=== PATIENT | male | born 1960 | race Caucasian/White ===

== ENCOUNTER 2017-11-22 10:12 | Emergency (ER) | payer OTHER ==
[~2017-11-22] VITALS: Ht 182.9 cm; Wt 99.8 kg
[~2017-11-22 10:12] MED LIST: ALBU90OI INH; AMOX500 PO; ASPI325 PO; Aspir-Low81 MG PO; Celexa10 MG PO; Citalopram HBr10 MG PO; ERGO50000 PO; GLIP2.5ER PO; HYDACE10B PO; HYDACE5 PO; LISI20; LISI5 PO; PRED20 PO; SULTRIDS PO; Tambocor100 MG PO
[2017-11-22] MEDS ORDERED: NAPR550 PO (11:23)
== END 2017-11-22 11:26 | disposition home or self-care (01) ==
LOC: ER 10:12
DX: M79.671 Pain in right foot (principal); F17.210 Nicotine dependence, cigarettes, uncomplicated; Z79.899 Other long term (current) drug therapy; Z79.82 Long term (current) use of aspirin; Z79.84 Long term (current) use of oral hypoglycemic drugs
CPT/HCPCS: 73630; 99283

== ENCOUNTER 2019-08-24 11:32 | Inpatient (IN) | payer OTHER ==
[~2019-08-24] VITALS: Ht 185.4 cm; Wt 95.0 kg
[~2019-08-24 11:32] MED LIST changes: +NAPR550 PO
[2019-08-24 12:58] LABS: BASOPHILS ABSOLUTE AUTO 0.03 K/mm3 (0.00-0.23); BASOPHILS PERCENT AUTO 0 % (0-2); EOSINOPHILS ABSOLUTE AUTO 0.04 K/mm3 (0.00-0.68); EOSINOPHILS PERCENT AUTO 0 % (0-6); Hematocrit 41.2 % (37.0-53.0); Hemoglobin 13.6 g/dL (13.5-17.5); IMMATURE GRAN ABSOLUTE AUTO 0.02 K/mm3 (0.00-0.10); IMMATURE GRAN PERCENT AUTO 0 % (0-1); LYMPHOCYTES ABSOLUTE AUTO 2.01 K/mm3 (0.84-5.20); LYMPHOCYTES PERCENT AUTO 23 % (21-46); MONOCYTES ABSOLUTE AUTO 0.77 K/mm3 (0.16-1.47); MONOCYTES PERCENT AUTO 9 % (4-13); Mean Corpuscular HGB 30.8 pg (26.0-34.0); Mean Corpuscular Volume 93 fL (80-100); Mean Platelet Volume 11.6 fL (9.1-12.4); NEUTROPHILS ABSOLUTE AUTO 6.04 K/mm3 (1.96-9.15); NEUTROPHILS PERCENT AUTO 68 % (41-73); Platelet Count 215 K/mm3 (150-400); RDW Coefficient Variation 12.7 % (11.7-14.2); RDW Standard Deviation 43.7 fL (35.1-46.3); Red Blood Cell Count 4.42 M/mm3 (4.30-5.90); White Blood Cell Count 8.91 K/mm3 (4.00-11.30)
[2019-08-24 13:16] LABS: Alanine Aminotransfer (ALT/SGP 98 U/L (12-78); Albumin, Blood 3.4 g/dL (3.4-5.0); Albumin/Globulin Ratio 0.8 (0.8-1.8); Alk Phos 110 U/L (50-136); Anion Gap 9 mmol/L (6-16); Aspartate Aminotrans (AST/SGOT 52 U/L (12-37); Bilirubin, Total 0.6 mg/dL (0.1-1.0); Blood Urea Nitrogen 21 mg/dL (8-24); Bun/Creatinine Ratio 16.5 (12.0-20.0); CO2, Blood 20 mmol/L (21-32); Calcium, Blood 8.6 mg/dL (8.5-10.1); Chloride, Blood 107 mmol/L (98-108); Creatinine, Blood 1.27 mg/dL (0.60-1.20); Globulin, Blood 4.1 g/dL (2.2-4.0); Glomerular Filtration Rate >60 (60-); Glucose, Blood 338 mg/dL (70-99); Potassium, Blood 4.2 mmol/L (3.5-5.5); Sodium, Blood 136 mmol/L (136-145); Total Protein, Blood 7.5 g/dL (6.4-8.2); Troponin I 0.134 ng/mL (0.000-0.040)
[2019-08-24 13:30] LABS: International Normalized Ratio 1.07; Prothrombin Time Results 11.4 Sec (9.7-11.5)
[2019-08-24 15:38] LABS: Magnesium, Blood 1.8 mg/dL (1.6-2.4)
[2019-08-24 15:40] LABS: Thyroid Stimulating Hormone 0.991 uIU/mL (0.360-4.800)
--- NOTE | 2019-08-24 17:46 | NUR ---
1720 PT ADMITTED TO MEDICAL FLOOR VIA GURNEY, SELF TRANSFERED TO BED WITHOUT ISSUE. PT INSISTED THAT HE GO OUTSIDE TO SMOKE IMMEDIATELY, PT COUNSELED ON SMOKING SENSATION AND RISKS ASSOCIATED WITH SMOKING WITH CURRENT CONDITION, INCLUDING SUDDEN . PT ON RA, LUNGS CLEAR ALTHOGH TIGHT. PT REQUESTED W/C. ABLE TO ATTAIN SET OF VS. 1740 PT'S FRIEND WHEELED PT. 1750 PT RETURNED TO ROOM.
--- NOTE | 2019-08-24 19:27 | NUR ---
SHIFT SUMMARY. A&OX4, INDEPENDENT IN ROOM, PLEASANT AND COPERATIVE. PT DENIES PAIN, SOB, N/V. LUNGS CLEAR, ALTHOGH TIGHT, ON RA. PT REPORTS THAT HE FEELS THAT HE WILL NOT WANT TO SMOKE FURTHER. NO NEW CHANGES OR CONCERNS.
[2019-08-24 22:12] LABS: Adenovirus Not Detected (NOT DETECT); Bordetella pertussis Not Detected (NOT DETECT); Chlamydophila pneumoniae Not Detected (NOT DETECT); Coronavirus 229E Not Detected (NOT DETECT); Coronavirus HKU1 Not Detected (NOT DETECT); Coronavirus NL63 Not Detected (NOT DETECT); Coronavirus OC43 Not Detected (NOT DETECT); Human Metapneumovirus Not Detected (NOT DETECT); Human Rhinovirus/Enterovirus Not Detected (NOT DETECT); Influenza A/2009-H1 Not Detected (NOT DETECT); Influenza A/H1 Not Detected (NOT DETECT); Influenza A/H3 Not Detected (NOT DETECT); Influenza B Not Detected (NOT DETECT); Mycoplasma pneumoniae Not Detected (NOT DETECT); Parainfluenza Virus 1 Not Detected (NOT DETECT); Parainfluenza Virus 2 Not Detected (NOT DETECT); Parainfluenza Virus 3 Not Detected (NOT DETECT); Parainfluenza Virus 4 Not Detected (NOT DETECT); Respiratory Syncytial Virus Not Detected (NOT DETECT)
[2019-08-25 04:31] LABS: BASOPHILS ABSOLUTE AUTO 0.05 K/mm3 (0.00-0.23); BASOPHILS PERCENT AUTO 1 % (0-2); EOSINOPHILS ABSOLUTE AUTO 0.23 K/mm3 (0.00-0.68); EOSINOPHILS PERCENT AUTO 3 % (0-6); Hematocrit 39.4 % (37.0-53.0); Hemoglobin 12.8 g/dL (13.5-17.5); Mean Corpuscular HGB 30.3 pg (26.0-34.0); Mean Corpuscular HGB Conc 32.5 g/dL (31.5-36.5); Mean Corpuscular Volume 93 fL (80-100); Mean Platelet Volume 11.5 fL (9.1-12.4); Platelet Count 190 K/mm3 (150-400); RDW Standard Deviation 44.5 fL (35.1-46.3); Red Blood Cell Count 4.22 M/mm3 (4.30-5.90); White Blood Cell Count 8.65 K/mm3 (4.00-11.30)
[2019-08-25 04:39] LABS: IMMATURE GRAN ABSOLUTE AUTO 0.01 K/mm3 (0.00-0.10); IMMATURE GRAN PERCENT AUTO 0 % (0-1); LYMPHOCYTES ABSOLUTE AUTO 4.54 K/mm3 (0.84-5.20); LYMPHOCYTES PERCENT AUTO 53 % (21-46); MONOCYTES ABSOLUTE AUTO 0.77 K/mm3 (0.16-1.47); MONOCYTES PERCENT AUTO 9 % (4-13); NEUTROPHILS ABSOLUTE AUTO 3.05 K/mm3 (1.96-9.15); NEUTROPHILS PERCENT AUTO 35 % (41-73)
[2019-08-25 05:01] LABS: Bun/Creatinine Ratio 16.7 (12.0-20.0); Calcium, Blood 8.5 mg/dL (8.5-10.1); Creatinine, Blood 1.44 mg/dL (0.60-1.20); Potassium, Blood 3.9 mmol/L (3.5-5.5)
--- NOTE | 2019-08-25 06:22 | NUR ---
SHIFT SUMMARY AOX4. TELE RUNNING AFIB c HR 114 THIS AM. REST VSS. DENIES DYSPNEA, N/V OR CHEST PAIN. STATES WHEN HE LAYS FLAT HE GETS A "FLUTTER" FEELING IN CHEST, THEREFORE SLEEPING W/HOB ELEVATED HELPS. RESPIRATORY PANEL NEGATIVE. SWABBED NARES & THROAT FOR MRSA R/O. LUNGS SOUND TIGHT & DIM T/O. IND IN ROOM. CALL LIGHT IN REACH.
--- NOTE | 2019-08-25 19:21 | NUR ---
SHIFT SUMMARY PATIENT DENIES PAIN, NAUSEA, AND SHORTNESS OF BREATH. PATIENT UP INDEPENDENT IN ROOM. PATIENT HAD CARDIAC CONSULT AND ECHO TODAY. NEW ORDERS FOR HEPARIN DRIP THIS AFTERNOON. HEPARIN RUNNING AT 13 U/KG. DR. STARR SAW PATIENT THIS EVENING, PATIENT HAVING POSSIBLE ANGIO TOMORROW. PATIENT STRICT I&O'S. CALL LIGHT IN REACH.
[2019-08-26 00:43] LABS: Bun/Creatinine Ratio 21.2 (12.0-20.0); Calcium, Blood 8.9 mg/dL (8.5-10.1); Creatinine, Blood 1.32 mg/dL (0.60-1.20); Magnesium, Blood 1.8 mg/dL (1.6-2.4); Phosphorus, Blood 4.4 mg/dL (2.5-4.9); Potassium, Blood 3.8 mmol/L (3.5-5.5)
--- NOTE | 2019-08-26 05:26 | NUR ---
SHIFT SUMMARY NO ACUTE CHANGES THIS SHIFT. PT REQUESTED SLEEPING PILL THIS EVENING AND SLEPT THROUGH MUCH OF THE NIGHT FOLLOWING. VITAL SIGNS STABLE. TELEMETRY READING AFIB 110'S TONIGHT. PT DENIES ANY CHEST PAIN OR SOB. HEPARIN DRIP INFUSING THROUGHOUT THE NIGHT, RATE INCREASED TO 15 UNITS/KG/HR. PT NPO EXCEPT ICE CHIPS SINCE 0000 FOR PROCEDURE TODAY. PT RESTING IN BED AT THIS TIME. WILL CONTINUE TO MONITOR.
--- NOTE | 2019-08-26 11:28 | NUR ---
PATIENT TRANSFER PATIENT TRANSFERD TO [facility] FOR ANGIO. PATIENT TO GO TO PCU AFTER PROCEDURE. REPORT GIVEN TO RECEIVING PCU NURSE.
--- NOTE | 2019-08-26 19:40 | NUR ---
RELINQUISHED PATIENT CARE.
--- NOTE | 2019-08-26 19:41 | NUR ---
PATIENT ARRIVED FROM [facility] THIS AFTERNOON. TR BAND STARTED AT 15 CC, REMOVED AT 1815. R. WRIST PUNCTURE SITE NON-TENDER, NO DISCHARGE NOTED. PATIENT EXPRESSED FEELING ANXIOUS THIS EVENING, TOOK A WALK IN THE HALLWAY AND ENDORSED RELIEF OF ANXIETY. PATIENT'S HEPARIN DRIP WAS STOPPED AT 1800 WITH ADMINISTRATION OF XARELTO PER ORDERS. AMIODORONE DRIP RATE ADJUSTED AT 1845 AND TITRATED DOWN PER ORDERS.
[2019-08-27 04:06] LABS: Bun/Creatinine Ratio 20.9 (12.0-20.0); Creatinine, Blood 1.48 mg/dL (0.60-1.20); Potassium, Blood 3.7 mmol/L (3.5-5.5)
--- NOTE | 2019-08-27 06:50 | NUR ---
SHIFT SUMMARY PATIENT ANXIOUS BUT COOPERATIVE THROUGHOUT THE NIGHT. PATIENT VERY FIDGTY AND UNCOMFORTABLE BUT PATIENT COULD NOT STATE EXACTLY WHY HE WAS UNCOMFORTABLE. PATIENT CONTINUES TO BE SHORT OF BREATH WHEN LAYING DOWN. PATIENT EVEN STATED THAT HE FELT NAUSOUS WHEN LAYING DOWN AT ONE TIME, MEDICATED PER EMAR. PATIENT INDPENDENT IN THE ROOM AND WENT ON A WALK LAST NIGHT TO TRY TO HELP HIM SLEEP. PATIENT APPEARED TO NAP ON AND OFF THROUGHOUT THE NIGHT. PATIENT USED 2L O2 PRN FOR COMFORT. PATIENT CURRENTLY RESTING IN BED. AMIODERONE GTT RUNNING PER ORDERS. WILL CONTINUE TO MONITOR PATIENT AND GIVE BEDSIDE REPORT TO ONCOMING RN.
--- NOTE | 2019-08-27 07:20 | NUR ---
ASSUMED PATIENT CARE. SLEEPING COMFORTABLY IN BED, NO SIGNS OF ACUTE DISTRESS, WCTM.
--- NOTE | 2019-08-27 18:29 | NUR ---
NO ACUTE EVENTS THIS SHIFT. PATIENT STARTED ON PO AMIODORONE THIS MORNING. HAS REMAINED IN A FIB THIS SHIFT IN THE 90S-110S. PATIENT ENDORSED FEELING ANXIOUS, JITTERY, AND LIGHT SENSITIVE. DR. CLINE WAS NOTIFIED, GAVE ORDERS FOR PO ATIVAN. PATIENT ENDORSED THAT THE ATIVAN HELPED.
--- NOTE | 2019-08-27 21:57 | NUR ---
UPDATE DR ELLIS NOTIFIED OF PATIENT'S LOW BLOOD PRESSURE. DR ELLIS STATED THAT IT WAS FINE TO GO AHEAD AND GIVE PATIENT'S 2100 DOSE OF AMIODARONE.
[2019-08-28 05:51] LABS: Bun/Creatinine Ratio 16.1 (12.0-20.0); Calcium, Blood 8.8 mg/dL (8.5-10.1); Creatinine, Blood 2.3 mg/dL (0.60-1.20); Magnesium, Blood 2.1 mg/dL (1.6-2.4); Potassium, Blood 4.1 mmol/L (3.5-5.5)
--- NOTE | 2019-08-28 06:39 | NUR ---
SHIFT SUMMARY PATIENT ANXIOUS AT TIMES THROUGHOUT THE NIGHT, PATIENT MEDICATED FOR ANXIETY PER EMAR AND ABLE TO DUE TO LOW BLOOD PRESSURE. PATIENT AWAKE AND UP WALKING FREQUENTLY AT THE BEGINNING OF THE NIGHT BUT THEN WAS ABLE TO SETTLE DOWN AND APPEARED TO SLEEP WELL THROUGHOUT THE REST OF THE NIGHT. PATIENT REQUESTING NOT TO HAVE BEDSIDE REPORT THIS MORNING. WILL CONTINUE TO MONITOR PATIENT AND REPORT TO ONCOMING RN.
--- NOTE | 2019-08-28 18:28 | NUR ---
SHIFT SUMMARY: PT SELPT MOST OF THIS SHIFT. WENT FOR A WALK X 1, SHOWERED. USING BR INDEPENDENTLY. ADEQUATE PO INTAKE. C/O HEADACHE, MEDICATED WITH TYLENOL WITH GOOD EFFECT. DENIED CHEST DISCOMFORT, SOB, HALL.
--- NOTE | 2019-08-28 20:05 | NUR ---
INITIAL ASSESSMENT PATIENT SITTING ON SIDE OF BED UPON ENTERING ROOM. PATIENT ALERT AND ORIENTED X 4, AFEBRILE. PATIENT ANXIOUS AND IRRITABLE. PATIENT GIVEN PRN ATIVAN UPON REQUEST. PATIENT INDEPENDENT IN ROOM. PATIENT GIVEN PRN TYLENOL FOR COMPLAINT OF HEADACHE. PATIENT SATTING 90% AND GREATER ON RA. LUNGS CLEAR THROUGHOUT. PATIENT STATES HE HAS OCCASIONAL DRY COUGH. PATIENT IN A.FIB, HR 106. BP STABLE. PULSES STRONG. GI WNL PER PATIENT. WNL. R RADIAL SOIL CONSERVATIONIST ACCESS SITE NOTED. ARMBOARD AND TEGADERM IN PLACE. NO BLEEDING, BRUISING, OR HEMATOMA NOTED. IV FLUSHED AND SALINE LOCKED. BED LOW, CALL LIGHT IN REACH. WILL CONTINUE TO MONITOR PATIENT FREQUENTLY THROUGHOUT SHIFT.
--- NOTE | 2019-08-28 22:40 | NUR ---
PATIENT CAME OUT OF ROOM TO NURSES DESK, SET DOWN TELE MONITOR THAT HE TOOK OFF OF HIMSELF, AND STATED TO NURSE TO "TAKE IV OUT BECAUSE HE IS LEAVING". NURSE SPOKE WITH PATIENT AND PATIENT CONTINUES TO BE IRRITABLE AND ANXIOUS. PATIENT STATES HE IS UPSET BECAUSE NURSE GAVE HIM PRN ATIVAN 10 MINUTES AFTER ASKING AND THAT IT DID NOT WORK BECAUSE IT "WAS GIVEN TOO LATE". INFORMED PATIENT THAT HE CAN HAVE PRN ATIVAN AGAIN AT MIDNIGHT AND THAT HE ALSO HAS PRN AMBIEN AVAILABLE TO HELP WITH SLEEP. PATIENT STATED THAT HE "DIDN'T WANT ANY OF THAT CRAP" AND THAT HE JUST WANTED TO GO HOME. PATIENT STATED THAT HE CALLED HIS GF HANS AND SHE WAS COMING FROM [place] TO COME AND GET HIM. WILL HAVE PATIENT SIGN AMA FORM. CHARGE NURSE, HUNTER, AT DESK AND WITNESSED CONVERSATION.
--- NOTE | 2019-08-28 22:56 | NUR ---
2243: PATIENT SIGNED AMA FORM AFTER LISTENING TO RISKS AND BENEFITS. PATIENT STATED HE UNDERSTANDS RISKS OF LEAVING AMA. PATIENT STATES THAT GF WILL BE HERE IN ABOUT AN HOUR TO GET HIM. 1051: PATIENT WALKS OUT OF ROOM AND INFORMS NURSE THAT HE IS LEAVING AND THAT GF WILL BE HERE TO CLEAR THE STUFF OUT OF HIS ROOM. NURSE ASKS IF HE WILL BE BACK WHEN GF GETS HERE AND HE STATES "I DON'T KNOW". CHARGE NURSE, HUNTER, INFORMED.
--- NOTE | 2019-08-28 23:20 | NUR ---
PATIENT BACK TO ROOM TO WAIT FOR GF.
--- NOTE | 2019-08-29 00:03 | NUR ---
PATIENT CONTINUES TO WAIT FOR GF TO PICK HIM UP. PATIENT STATES SHE IS STILL ON HER WAY. VSS.
--- NOTE | 2019-08-29 01:50 | NUR ---
PATIENT'S GF SHOWED UP TO PICK HIM UP AT 0135. PATIENT SOB FROM BEING OUTSIDE SMOKING AND WAITING FOR GF. GF STATES THAT PATIENT IS STAYING. PATIENT AGREES TO STAY AFTER SPEAKING WITH GF. NURSE SPEAKS TO CHARGE NURSE, NURSE HYDRAULIC ENGINEER AND DR. LAND ABOUT PATIENT SIGNING AMA FORMS HOURS AGO. IT IS STATED BY DR. LAND TO DISREGARD AMA FORM AND TO HAVE PATIENT STAY. CHARGE NURSE INFORMED. PATIENT AND GF ASK IF PATIENT CAN HAVE ATIVAN AT THIS TIME. NURSE INFORMS THEM THAT HE CAN. GF JOKES THAT HE NEEDS A BEER WITH THE ATIVAN TO HELP. NURSE ASKS IF PATIENT DRINKS DAILY. PATIENT DENIES AND STATES HE DRINKS OCCASIONALLY. PATIENT'S GF STATES HE DRINKS 2 BEERS EVERY DAY. CIWA SCORE OF 10 OBTAINED. PATIENT GIVEN PRN ATIVAN. IF DOES NOT HELP THEN WILL CALL DR. LAND AGAIN TO INFORM.
--- NOTE | 2019-08-29 02:38 | NUR ---
DR. LAND CALLED AND INFORMED THAT PATIENT'S GF STATED PATIENT DRINKS 2 BEERS PER DAY. INFORMED THAT CIWA SCORE REMAINS 10 EVEN AFTER GIVING PRN 0.5 MG ATIVAN. ORDERS RECEIVED.
[2019-08-29 03:34] LABS: BASOPHILS ABSOLUTE AUTO 0.09 K/mm3 (0.00-0.23); BASOPHILS PERCENT AUTO 1 % (0-2); EOSINOPHILS ABSOLUTE AUTO 0.09 K/mm3 (0.00-0.68); EOSINOPHILS PERCENT AUTO 1 % (0-6); Hematocrit 45.9 % (37.0-53.0); Hemoglobin 14.9 g/dL (13.5-17.5); IMMATURE GRAN ABSOLUTE AUTO 0.08 K/mm3 (0.00-0.10); IMMATURE GRAN PERCENT AUTO 1 % (0-1); LYMPHOCYTES ABSOLUTE AUTO 5.67 K/mm3 (0.84-5.20); LYMPHOCYTES PERCENT AUTO 36 % (21-46); MONOCYTES ABSOLUTE AUTO 1.44 K/mm3 (0.16-1.47); MONOCYTES PERCENT AUTO 9 % (4-13); Mean Corpuscular HGB 30.5 pg (26.0-34.0); Mean Corpuscular HGB Conc 32.5 g/dL (31.5-36.5); Mean Corpuscular Volume 94 fL (80-100); Mean Platelet Volume 11.8 fL (9.1-12.4); NEUTROPHILS ABSOLUTE AUTO 8.43 K/mm3 (1.96-9.15); NEUTROPHILS PERCENT AUTO 53 % (41-73); NRBC ABSOLUTE 0.03 K/mm3 (0.00-0.02); NRBC Auto 0.2 /100 WBC (0.0-0.2); Platelet Count 246 K/mm3 (150-400); RDW Coefficient Variation 12.7 % (11.7-14.2); RDW Standard Deviation 43.7 fL (35.1-46.3); Red Blood Cell Count 4.88 M/mm3 (4.30-5.90)
[2019-08-29 04:00] LABS: Bun/Creatinine Ratio 15.2 (12.0-20.0); Calcium, Blood 8.9 mg/dL (8.5-10.1); Creatinine, Blood 3.15 mg/dL (0.60-1.20); Magnesium, Blood 2.1 mg/dL (1.6-2.4); Potassium, Blood 4.7 mmol/L (3.5-5.5)
--- NOTE | 2019-08-29 04:01 | NUR ---
CIWA SCORE OF 3. PATIENT MUCH LESS AGITATED AND IRRITATED SINCE GETTING LIBRIUM AND ATIVAN. AFEBRILE. HR IN THE 70S. BP STABLE. PATIENT REMAINS IN A.FIB. PATIENT COMPLAINING ABOUT CONSTIPATION. ABDOMEN FIRM. PATIENT DRANK PRUNE JUICE EARLIER IN SHIFT. PATIENT'S GF REMAINS AT BEDSIDE. PATIENT HAS NO COMPLAINTS OF PAIN AT THIS TIME. NO OTHER ACUTE CHANGES TO NOTE ON AT THIS TIME. WILL CONTINUE TO MONITOR.
--- NOTE | 2019-08-29 06:23 | NUR ---
SHIFT SUMMARY PATIENT REMAINED ALERT AND ORIENTED X 4, AFEBRILE. PATIENT VERY AGITATED AND IRRITATED UP UNTIL GF ARRIVED HERE TO PICK HIM UP HE SIGNED AMA FORMS. PATIENT STAYED AFTER SPEAKING WITH CHARGE NURSE, NURSE GEOGRAPHIC INFORMATION SYSTEMS MANAGER AND DOCTOR. PATIENT'S GF STATES PATIENT DRINKS 2 BEERS PER DAY. CIWA SCORE OF 10 INITIALLY. PATIENT STARTED ON LIBRIUM AND PRN ATIVAN. PATIENT MUCH MORE PLEASANT AFTER. LAST CIWA SCORE 3. PATIENT GIVEN PRN TYLENOL OT DURING SHIFT FOR COMPLAINTS OF HEADACHE. PATIENT REMAINED INDEPENDENT IN ROOM. PATIENT REMAINED SATTING 90% AND GREATER ON RA. PATIENT HAD DRY COUGH. PATIENT SOB WITH EXERTION WHEN WALKING IN CHAVES WHILE WAITING FOR GF. PATIENT IN A.FIB, HR 70S TO 106. BP STABLE. PATIENT ON PO AMIODARONE. PATIENT STATES HE IS CONSTIPATED, LAST BM 4 DAYS AGO. PATIENT RECEIVING SCHEDULED COLACE AND SENOKOT. WNL. R RADIAL PUBLIC RELATIONS ACCOUNT EXECUTIVE ACCESS SITE REMAINS WNL, WITH NO BLEEDING, BRUISING, OR HEMATOMA NOTED. BUN, CREATININE AND WBCS INCREASING. GFR DECREASING. PATIENT SLEEPING FOR THE FIRST TIME THIS SHIFT WITH NO COMPLAINTS. GF AT BEDSIDE. BED LOW, CALL LIGHT IN REACH. REPORT WILL BE GIVEN TO [facility] DAY SHIFT NURSE SHORTLY.
--- NOTE | 2019-08-29 07:26 | NUR ---
ASSUMED CARE: PT RESTING QUIETLY AT THIS TIME. S.O. IN ROOM WITH PT. NO ACUTE NEEDS OR CONCERNS AT PRESENT.
--- NOTE | 2019-08-29 11:48 | NUR ---
DR DONALDSON NOTIFIED OF PT'S COMPLAINTS OF CONSTIPATION. PT REQUESTING ENEMA WHICH DR DONALDSON AGREED TO. STATES HE WILL BE BACK TO SEE PT LATER TODAY. PT WAS IN RESTROOM WHEN ENTERED TO UPDATE. PT AWARE TO CALL STAFF WHEN READY FOR ENEMA
--- NOTE | 2019-08-29 12:09 | NUR ---
ENEMA ADMINISTERED. PT IN RESTROOM AT THIS TIME.
--- NOTE | 2019-08-29 17:59 | NUR ---
SHIFT SUMMARY: PT SITTING UPRIGHT AT SIDE OF BED. ANXIOUS AT THIS TIME. CIWA 10. MEDICATED WITH SCHEDULED LIBRIUM AND PRN ATIVAN. S.O. AT BEDSIDE. SHE HAS BEEN TAKING HIM FOR WALKS IN THE WHEEL CHAIR TO HELP THE ANXIETY. DR ZACARIAS CONSULTED AND CAME TO SEE PT. SEE NEW ORDERS. GIVING PT SPACE TO ASSIST WITH ANXIETY AT THIS TIME.
[2019-08-29 19:11] LABS: Appearance, Urine Clear (Clear); Blood, Urine Neg (Neg); Color, Urine Amber (P-Yellow); Glucose Qualitative, Urine Neg (Neg); Ketones, Urine 1+ (Neg); Leukocyte Esterase, Urine Neg (Neg); Nitrite, Urine Neg (Neg); Protein, Urine 2+ (Neg); Specific Gravity, Urine 1.025 (1.003-1.022); Urobilinogen, Urine 1+ (Normal)
[2019-08-29 19:17] LABS: Bilirubin, Urine 1+ (Neg)
[2019-08-29 19:20] LABS: Amorphous Light (0-Heavy); Bacteria Mod /hpf; Mucus Mod (0-Heavy); Red Blood Cells, Urine 0-2 /hpf (0-2); Squamous Epithelial Cells Few /hpf (Few)
--- NOTE | 2019-08-29 21:05 | NUR ---
GAVE REPORT TO ETHEL LESTER WHO WILL ASSUME CARE
--- NOTE | 2019-08-29 23:26 | NUR ---
APPROX 2320 PATIENT WALKED OUT OF ROOM AND ASKED 'DOES ANYONE HAVE A SHOT OF HEROINE?'. PATIENT TOLD NO BY STAFF AND PATIENT STATED HE WAS GOING TO GO ON A WALK. PATIENT EDUCATED ON AND AWARE OF GOING OFF UNIT FOR ANY REASON WHILE HERE FOR AFIB WITH RVR. PATIENT STATES HE IS AWARE OF WHAT HIS DIAGNOSIS IS AND HE IS AWARE THAT HIS TELEMTRY CANNOT GO OFF UNIT AND WILL NOT TRANSMITT OFF UNIT. PATIENT IS AWARE OF THE RISKS AND WILL GO WALKING ANYWAY.
--- NOTE | 2019-08-30 03:59 | NUR ---
APPROX 2350 PATIENT BROUGHT BACK TO ROOM BY ER STAFF VIA WHEELCHAIR STATING PATIENT RAN OUT OF ENERGY AND NEEDED ASSISTANCE BACK TO ROOM. PATIENT REQUESTED SLEEPING MEDICATION AND WENT TO BED. SECURITY ARRIVED AND LET [facility] KNOW THAT THE PATIENT WAS SMOKING IN THE LOBBY OF THE ER. BED ALARM TURNED ON
--- NOTE | 2019-08-30 04:02 | NUR ---
SHIFT SUMMARY: PATIENT BED ALARM ON HE IS GETTING INCREASINGLY UNSTABLE ON HIS FEET (AFTER AMBIEN). ALL OTHER VSS, CALL LIGHT WITHIN REACH
[2019-08-30 06:04] LABS: Albumin, Blood 2.9 g/dL (3.4-5.0); Anion Gap 11 mmol/L (6-16); Blood Urea Nitrogen 50 mg/dL (8-24); Bun/Creatinine Ratio 20.3 (12.0-20.0); CO2, Blood 22 mmol/L (21-32); CPK Creatine Kinase 40 U/L (39-308); Calcium, Blood 8.7 mg/dL (8.5-10.1); Chloride, Blood 104 mmol/L (98-108); Creatinine, Blood 2.46 mg/dL (0.60-1.20); Glomerular Filtration Rate 29 (60-); Glucose, Blood 121 mg/dL (70-99); Phosphorus, Blood 4.3 mg/dL (2.5-4.9); Potassium, Blood 3.8 mmol/L (3.5-5.5); Sodium, Blood 137 mmol/L (136-145)
--- NOTE | 2019-08-30 07:20 | NUR ---
ASSUMED CARE: PT RESTING QUIETLY AT THIS TIME. NO ACUTE NEEDS OR CONCERNS NOTED.
--- NOTE | 2019-08-30 17:54 | NUR ---
SHIFT SUMMARY: PT HAS BEEN RESTING MOST OF THIS SHIFT. COVERED BLOOD SUGAR ONCE THIS SHIFT. AMBULATED IN CHAVES ONCE THIS SHIFT. HAS DENIED NEEDS OR CONCERNS A MAJORITY OF THE SHIFT.
[2019-08-31 05:13] LABS: BASOPHILS ABSOLUTE AUTO 0.07 K/mm3 (0.00-0.23); BASOPHILS PERCENT AUTO 1 % (0-2); EOSINOPHILS ABSOLUTE AUTO 0.11 K/mm3 (0.00-0.68); EOSINOPHILS PERCENT AUTO 1 % (0-6); Hematocrit 39.3 % (37.0-53.0); Hemoglobin 12.9 g/dL (13.5-17.5); IMMATURE GRAN ABSOLUTE AUTO 0.04 K/mm3 (0.00-0.10); IMMATURE GRAN PERCENT AUTO 0 % (0-1); LYMPHOCYTES ABSOLUTE AUTO 4.32 K/mm3 (0.84-5.20); LYMPHOCYTES PERCENT AUTO 40 % (21-46); MONOCYTES ABSOLUTE AUTO 1.09 K/mm3 (0.16-1.47); MONOCYTES PERCENT AUTO 10 % (4-13); Mean Corpuscular HGB 31.2 pg (26.0-34.0); Mean Corpuscular HGB Conc 32.8 g/dL (31.5-36.5); Mean Corpuscular Volume 95 fL (80-100); Mean Platelet Volume 12.1 fL (9.1-12.4); NEUTROPHILS ABSOLUTE AUTO 5.18 K/mm3 (1.96-9.15); NEUTROPHILS PERCENT AUTO 48 % (41-73); Platelet Count 198 K/mm3 (150-400); RDW Coefficient Variation 13.1 % (11.7-14.2); RDW Standard Deviation 45.2 fL (35.1-46.3); Red Blood Cell Count 4.14 M/mm3 (4.30-5.90); White Blood Cell Count 10.81 K/mm3 (4.00-11.30)
[2019-08-31 06:23] LABS: Bun/Creatinine Ratio 22.2 (12.0-20.0); Calcium, Blood 8.3 mg/dL (8.5-10.1); Creatinine, Blood 1.76 mg/dL (0.60-1.20); Potassium, Blood 3.9 mmol/L (3.5-5.5)
--- NOTE | 2019-08-31 06:29 | NUR ---
SHIFT SUMMARY NO ACUTE CHANGES NOTED THROUGH THE NIGHT. PT REMAINS A&O X4, VSS, CIWA >3 NOTED. PT'S STAYED THE NIGHT IN THR ROOM. HE DID "GO FOR A WALK" IN THE HALLS X1 AND ENDED UP GOING OUTSIDE TO SMOKE, HE BECAME SOB & FATIGUED ON HIS WAY BACK TO THE ROOM AND HAD TO TAKE FREQUENT BREAKS, PT WAS ESCORTED BACK TO HIS ROOM, PT EDUCATION WAS PROVIDED, VS REMAINED WNL. RIGHT RADIAL SITE C/D/I, NO S/S HEMATOMA OR BRUISING. CALL LIGHT IN REACH
--- NOTE | 2019-08-31 07:20 | NUR ---
ASSUMED CARE: PT RESTING QUIETLY. S.O. AT BEDSIDE. NO ACUTE NEEDS OR CONCERNS AT THIS TIME.
[2019-08-31 10:33] LABS: Antinuclear Antibody Screen Positive (Negative)
[2019-08-31] MEDS ORDERED: Amiodarone HCl200 MG PO (11:35)
[2019-08-31] MEDS ORDERED: BASAGLAR K100 UNIT/1 SC (11:39)
[2019-08-31] MEDS ORDERED: ATOR20 PO (11:39)
[2019-08-31] MEDS ORDERED: HUMALOG KW200 UNIT/1 (11:40)
[2019-08-31] MEDS ORDERED: Isosorbide Mono30 MG PO (11:41)
[2019-08-31] MEDS ORDERED: Nicoderm Cq1 EAC1 TOP (11:42)
[2019-08-31] MEDS ORDERED: XARELTO15 MG PO (11:42)
[2019-08-31] MEDS ORDERED: METO50ER PO (11:42)
--- NOTE | 2019-08-31 15:48 | NUR ---
DISCHARGE INSTRUCTIONS GIVEN TO PT AND GIRLFRIEND ABOUT FOLLOW UP APPOINTMENTS AND MEDICATIONS. REVIEWED DIABETIC TEACHINGS AND RISKS WITH PT AND INSULIN USE. INSTRUCTED TO GET GLUCOMETER FROM [facility] AND MEDICATIONS FROM PHARMACY. DENIED QUESTIONS. AMBULATORY UPON DISCHARGE
[2019-09-01 13:07] LABS: ANA DIRECT Negative (Negative); ANTIMYELOPEROXIDASE (MPO) ABS <9.0 U/mL (0.0-9.0); ANTIPROTEINASE 3 (PR-3) ABS <3.5 U/mL (0.0-3.5); ATYPICAL PANCA <1:20 titer (Neg:<1:20); CYTOPLASMIC (C-ANCA) <1:20 titer (Neg:<1:20); PERINUCLEAR (P-ANCA) <1:20 titer (Neg:<1:20)
[2019-09-02 05:08] LABS: COMPLEMENT C3, SERUM 81 mg/dL (82-167); COMPLEMENT C4, SERUM 13 mg/dL (14-44)
[2019-09-02 13:19] LABS: ANA Pattern Homogenous
== END 2019-08-31 16:37 | disposition home or self-care (01) | DRG 280 ==
LOC: ER 11:32 → MEDS 17:09 → PCU 17:09 → MEDS 17:19 → PCU 08-26 11:42
PROVIDERS: Emergency Medicine; Hospitalist; Internal Medicine; Physician Assistant; ADMIT Internal Medicine
PROC: 4A023N7 Measurement of Cardiac Sampling and Pressure, Left Heart, Percutaneous Approach (ICD-10-PCS; principal; 2019-08-26)
PROC: B2111ZZ Fluoroscopy of Multiple Coronary Arteries using Low Osmolar Contrast (ICD-10-PCS; 2019-08-26)
PROC: 5A2204Z Restoration of Cardiac Rhythm, Single (ICD-10-PCS; 2019-08-26)
DX: I48.20 Chronic atrial fibrillation, unspecified (principal); I21.A1 Myocardial infarction type 2; I50.23 Acute on chronic systolic (congestive) heart failure; J18.9 Pneumonia, unspecified organism; N17.9 Acute kidney failure, unspecified; I13.0 Hypertensive heart and chronic kidney disease with heart failure and stage 1 through stage 4 chronic kidney disease, or unspecified chronic kidney disease; I42.8 Other cardiomyopathies; F17.210 Nicotine dependence, cigarettes, uncomplicated; E11.22 Type 2 diabetes mellitus with diabetic chronic kidney disease; N18.2 Chronic kidney disease, stage 2 (mild); Z86.73 Personal history of transient ischemic attack (TIA), and cerebral infarction without residual deficits; G47.33 Obstructive sleep apnea (adult) (pediatric)
CPT/HCPCS: 0099U; 36415; 71045; 76770; 80048; 80053; 80069; 81001; 82550; 82947; 83036; 83520; 83735; 83880; 84100; 84145; 84443; 84484; 85025; 85347; 85610; 85730; 86038; 86039; 86160; 86256; 87081; 92960; 93005; 93010; 93306; 93312; 93325; 93458; 93571; 96374; 96375; 96376; 99152; 99153; 99285-25; A9270; A9270-GY; C1769; C1887; C1894; J0153; J0282; J1644; J1940; J2060; J2250; J2405; J3010; J7030; J7060; Q9967

== ENCOUNTER 2019-09-11 02:34 | Emergency (ER) | payer OTHER ==
[~2019-09-11] VITALS: Ht 185.4 cm; Wt 99.8 kg
[2019-09-11] MEDS ORDERED: CORTISONE60 GM TOP (03:29)
[2019-09-11] MEDS ORDERED: BENADRYL25 MG PO (03:29)
[2019-09-11 03:44] LABS: Source, Urine Clean Catch
[2019-09-11 03:47] LABS: BASOPHILS ABSOLUTE AUTO 0.07 K/mm3 (0.00-0.23); BASOPHILS PERCENT AUTO 1 % (0-2); EOSINOPHILS ABSOLUTE AUTO 0.31 K/mm3 (0.00-0.68); EOSINOPHILS PERCENT AUTO 2 % (0-6); Hematocrit 46.5 % (37.0-53.0); Hemoglobin 14.5 g/dL (13.5-17.5); Mean Corpuscular HGB 30.7 pg (26.0-34.0); Mean Corpuscular HGB Conc 31.2 g/dL (31.5-36.5); Mean Platelet Volume 11.2 fL (9.1-12.4); Platelet Count 227 K/mm3 (150-400); RDW Coefficient Variation 13.2 % (11.7-14.2); RDW Standard Deviation 47.9 fL (35.1-46.3); Red Blood Cell Count 4.72 M/mm3 (4.30-5.90)
[2019-09-11 03:47] LABS: Blood, Urine Neg (Neg); Glucose Qualitative, Urine 1+ (Neg); Ketones, Urine 1+ (Neg); Leukocyte Esterase, Urine 1+ (Neg); Nitrite, Urine Neg (Neg); Protein, Urine 4+ (Neg); Specific Gravity, Urine 1.025 (1.003-1.022); Urobilinogen, Urine 2+ (Normal)
[2019-09-11 03:53] LABS: IMMATURE GRAN ABSOLUTE AUTO 0.02 K/mm3 (0.00-0.10); IMMATURE GRAN PERCENT AUTO 0 % (0-1); LYMPHOCYTES PERCENT AUTO 46 % (21-46); MONOCYTES ABSOLUTE AUTO 1.03 K/mm3 (0.16-1.47); MONOCYTES PERCENT AUTO 8 % (4-13); Mean Corpuscular Volume 99 fL (80-100); NEUTROPHILS ABSOLUTE AUTO 5.47 K/mm3 (1.96-9.15); NEUTROPHILS PERCENT AUTO 43 % (41-73)
[2019-09-11 03:53] LABS: Appearance, Urine Hazy (Clear); Bilirubin, Urine 2+ (Neg); Color, Urine Amber (P-Yellow)
[2019-09-11 03:54] LABS: Amorphous Light (0-Heavy); Bacteria Few /hpf; Mucus Mod (0-Heavy); Red Blood Cells, Urine Not Seen /hpf (0-2); Squamous Epithelial Cells Not Seen /hpf (Few)
[2019-09-11 04:05] LABS: Albumin, Blood 3.3 g/dL (3.4-5.0); Albumin/Globulin Ratio 0.8 (0.8-1.8); Bilirubin, Total 0.8 mg/dL (0.1-1.0); Bun/Creatinine Ratio 12.1 (12.0-20.0); Calcium, Blood 8.4 mg/dL (8.5-10.1); Creatinine, Blood 1.74 mg/dL (0.60-1.20); Globulin, Blood 3.9 g/dL (2.2-4.0); Total Protein, Blood 7.2 g/dL (6.4-8.2)
[2019-09-11 04:08] LABS: Hyaline Casts TNTC /lpf (0-2)
[2019-09-12] MEDS ORDERED: Amiodarone HCl200 MG PO (18:14)
[2019-09-12] MEDS ORDERED: ATOR40TA PO (18:15)
[2019-09-12] MEDS ORDERED: METO50ER PO (18:16)
[2019-09-12] MEDS ORDERED: ISOSORBIDE MONO60 MG PO (18:16)
[2019-09-12] MEDS ORDERED: XARELTO15 MG PO (18:16)
[2019-09-12] MEDS ORDERED: LISI5 PO (18:17)
[2019-09-12] MEDS ORDERED: FURO40 PO (18:18)
[2019-09-12] MEDS ORDERED: BASAGLAR K100 UNIT/1 SC (18:51)
[2019-09-12] MEDS ORDERED: Humalog100 UNIT/3 SC (18:51)
[2019-09-12] MEDS ORDERED: Nicoderm Cq1 EAC1 TOP (18:56)
== END 2019-09-11 04:29 | disposition home or self-care (01) ==
LOC: ER 02:34
PROVIDERS: Emergency Medicine
DX: N48.89 Other specified disorders of penis (principal); T50.905A Adverse effect of unspecified drugs, medicaments and biological substances, initial encounter; I10 Essential (primary) hypertension; I49.3 Ventricular premature depolarization; F17.210 Nicotine dependence, cigarettes, uncomplicated; Z79.899 Other long term (current) drug therapy
CPT/HCPCS: 36415; 51798; 80053; 81001; 85025; 87086; 99283-25; Q0163

== ENCOUNTER 2019-09-12 16:54 | Inpatient (IN) | payer OTHER ==
[~2019-09-12] VITALS: Ht 185.4 cm; Wt 99.5 kg
[~2019-09-12 16:54] MED LIST changes: +BENADRYL25 MG PO; +CORTISONE60 GM TOP
[2019-09-12 17:19] LABS: BASOPHILS ABSOLUTE AUTO 0.07 K/mm3 (0.00-0.23); BASOPHILS PERCENT AUTO 1 % (0-2); EOSINOPHILS ABSOLUTE AUTO 0.06 K/mm3 (0.00-0.68); EOSINOPHILS PERCENT AUTO 0 % (0-6); Hematocrit 48.4 % (37.0-53.0); Hemoglobin 15.2 g/dL (13.5-17.5); IMMATURE GRAN ABSOLUTE AUTO 0.04 K/mm3 (0.00-0.10); IMMATURE GRAN PERCENT AUTO 0 % (0-1); LYMPHOCYTES ABSOLUTE AUTO 4.68 K/mm3 (0.84-5.20); LYMPHOCYTES PERCENT AUTO 34 % (21-46); MONOCYTES ABSOLUTE AUTO 1.08 K/mm3 (0.16-1.47); MONOCYTES PERCENT AUTO 8 % (4-13); Mean Corpuscular HGB 30.6 pg (26.0-34.0); Mean Corpuscular HGB Conc 31.4 g/dL (31.5-36.5); Mean Corpuscular Volume 98 fL (80-100); Mean Platelet Volume 11.5 fL (9.1-12.4); NEUTROPHILS ABSOLUTE AUTO 7.93 K/mm3 (1.96-9.15); NEUTROPHILS PERCENT AUTO 57 % (41-73); Platelet Count 235 K/mm3 (150-400); RDW Coefficient Variation 13.2 % (11.7-14.2); Red Blood Cell Count 4.96 M/mm3 (4.30-5.90); White Blood Cell Count 13.86 K/mm3 (4.00-11.30)
[2019-09-12 17:39] LABS: Troponin I 0.307 ng/mL (0.000-0.040)
[2019-09-12 17:48] LABS: Albumin, Blood 3.4 g/dL (3.4-5.0); Albumin/Globulin Ratio 0.8 (0.8-1.8); Bilirubin, Total 0.8 mg/dL (0.1-1.0); Bun/Creatinine Ratio 11.1 (12.0-20.0); Calcium, Blood 8.3 mg/dL (8.5-10.1); Creatinine, Blood 3.33 mg/dL (0.60-1.20); Potassium, Blood 6.1 mmol/L (3.5-5.5); Total Protein, Blood 7.4 g/dL (6.4-8.2)
[2019-09-12] MEDS ORDERED: Amiodarone HCl200 MG PO (18:14)
[2019-09-12] MEDS ORDERED: ATOR40TA PO (18:15)
[2019-09-12] MEDS ORDERED: ISOSORBIDE MONO60 MG PO (18:16)
[2019-09-12] MEDS ORDERED: METO50ER PO (18:16)
[2019-09-12] MEDS ORDERED: XARELTO15 MG PO (18:16)
[2019-09-12] MEDS ORDERED: LISI5 PO (18:17)
[2019-09-12] MEDS ORDERED: FURO40 PO (18:18)
[2019-09-12] MEDS ORDERED: BASAGLAR K100 UNIT/1 SC (18:51)
[2019-09-12] MEDS ORDERED: Humalog100 UNIT/3 SC (18:51)
[2019-09-12] MEDS ORDERED: Nicoderm Cq1 EAC1 TOP (18:56)
[2019-09-12 19:23] LABS: International Normalized Ratio 2.03; Prothrombin Time Results 20.9 Sec (9.7-11.5)
[2019-09-12 19:36] LABS: Phosphorus, Blood 5.6 mg/dL (2.5-4.9)
[2019-09-12 21:58] LABS: Albumin, Blood 3.2 g/dL (3.4-5.0); Anion Gap 9 mmol/L (6-16); Blood Urea Nitrogen 39 mg/dL (8-24); Bun/Creatinine Ratio 11.1 (12.0-20.0); CO2, Blood 21 mmol/L (21-32); Calcium, Blood 8.7 mg/dL (8.5-10.1); Chloride, Blood 109 mmol/L (98-108); Creatinine, Blood 3.51 mg/dL (0.60-1.20); Glomerular Filtration Rate 19 (60-); Glucose, Blood 119 mg/dL (70-99); Phosphorus, Blood 5.8 mg/dL (2.5-4.9); Potassium, Blood 5.2 mmol/L (3.5-5.5); Sodium, Blood 139 mmol/L (136-145)
[2019-09-12 22:03] LABS: U Amphetamine Screen DETECTED; U Barbituate Screen Not Detected; U Benzodiazapine Screen DETECTED; U Buprenorphine Screen Not Detected; U Cannabinoids Screen Not Detected; U Cocaine Screen Not Detected; U Methadone Screen Not Detected; U Methamphetamine Screen DETECTED; U Opiates Screen Not Detected; U Oxycodone Screen Not Detected; U Phencyclidine Screen Not Detected; U Propoxyphene Screen Not Detected
--- NOTE | 2019-09-12 22:03 | NUR ---
ASSUMED CARE NOTE: ASSUMED CARE OF PT AT 2030, RECEVIED REPORT FROM CLAIRE AUGUSTIN RN. PT ARRIVED TO THE UNIT VIA STRECHER. PT TRANSFERD SELF TO UNIT BED, PT IS STEADY ON HIS FEET, NO ASSISTANCE NEEDED. PT IS ALERT AND ORIENTED, ABLE TO RECALL RECENT AND REMOTE EVENTS. PT IS ON RA WITH SPO2 ABOVE 95%, LUNG SOUNDS ARE CLEAR T/O. AFEBRILE, BP STABLE. PT STATES HE IS SOB, RR 16-20. PT IS ABLE TO TALK IN FULL SENTENCES. PT REPORTS TO HAVING A COUGH WITH GREEN/YELLOW SPUTUM, NONE NOTED SINCE ARRIVAL TO THE UNIT. PT IS IN A-FIB WITH HR IN THE 70'S, PT DENIES ANY CHEST PAIN AT THIS TIME. PT STATES THAT HIS HEART FLUTTERS AT TIMES. ABDOMEN IS DISTENTED, PT STATES HE FEELS BLOATED. PT HAS +2 PITTING EDEMA IN BLE. PT DENIES NAUSEA OR VOMITING AT THIS TIME. PT USED URINAL AT BED SIDE, DARK SUSAN URINE NOTED. PT STATES THAT HIS SPEECH IS IMPARIED. BLOOD SUGAR IS NORMAL, NO FACIAL DROOP, OR ARM WEAKNESS/NUMBNESS DETECTED, PT WAS ABLE TO ANSWER QUESTIONS APPROPRIATLY AND REPEATE SIMPLE PHRASES. PT ORIENTED TO THE ROOM, WILL CONTINUE TO ASSESS PT T/O SHIFT. BED AT LOWEST LEVEL, CALL LIGHT WITHIN REACH.
[2019-09-13 04:31] LABS: BASOPHILS ABSOLUTE AUTO 0.08 K/mm3 (0.00-0.23); BASOPHILS PERCENT AUTO 1 % (0-2); EOSINOPHILS ABSOLUTE AUTO 0.14 K/mm3 (0.00-0.68); EOSINOPHILS PERCENT AUTO 1 % (0-6); Hematocrit 44.1 % (37.0-53.0); Hemoglobin 13.9 g/dL (13.5-17.5); IMMATURE GRAN ABSOLUTE AUTO 0.02 K/mm3 (0.00-0.10); IMMATURE GRAN PERCENT AUTO 0 % (0-1); LYMPHOCYTES ABSOLUTE AUTO 5.84 K/mm3 (0.84-5.20); LYMPHOCYTES PERCENT AUTO 46 % (21-46); MONOCYTES ABSOLUTE AUTO 0.92 K/mm3 (0.16-1.47); MONOCYTES PERCENT AUTO 7 % (4-13); Mean Corpuscular HGB 30.3 pg (26.0-34.0); Mean Corpuscular HGB Conc 31.5 g/dL (31.5-36.5); Mean Corpuscular Volume 96 fL (80-100); Mean Platelet Volume 12.1 fL (9.1-12.4); NEUTROPHILS ABSOLUTE AUTO 5.69 K/mm3 (1.96-9.15); NEUTROPHILS PERCENT AUTO 45 % (41-73); Platelet Count 219 K/mm3 (150-400); RDW Coefficient Variation 13.2 % (11.7-14.2); RDW Standard Deviation 46.5 fL (35.1-46.3); Red Blood Cell Count 4.59 M/mm3 (4.30-5.90); White Blood Cell Count 12.69 K/mm3 (4.00-11.30)
[2019-09-13 04:58] LABS: Albumin/Globulin Ratio 0.9 (0.8-1.8); Bilirubin, Total 0.8 mg/dL (0.1-1.0); Bun/Creatinine Ratio 12.8 (12.0-20.0); Calcium, Blood 8.4 mg/dL (8.5-10.1); Creatinine, Blood 3.37 mg/dL (0.60-1.20); Globulin, Blood 3.4 g/dL (2.2-4.0); Magnesium, Blood 2.1 mg/dL (1.6-2.4); Phosphorus, Blood 5.3 mg/dL (2.5-4.9); Potassium, Blood 5.1 mmol/L (3.5-5.5); Total Protein, Blood 6.4 g/dL (6.4-8.2); Uric Acid, Blood 9.4 mg/dL (3.5-7.2)
--- NOTE | 2019-09-13 05:20 | NUR ---
SHIFT SUMMARY: PT HAS A 24HR URINE COLLECTION, THAT WILL END 0115, 09/14/19. PT SLEPT THROUGH MOST OF THE SHIFT. PT HAS BEEN ON RA. PT STATES HE HAS A CPAP AT HOME HE DOES NOT USE. PT SPO2 REMAINED ABOVE 95%, ON RA T/O SHIFT. NO SOB NOTED. PT HAS BEEN HAVING A NON-PRODUCTIVE COUGH, HAS BEEN AFEBRILE. CONTINUES TO BE IN A-FIB, MINOR HOSPITALIST HELD XARELTO. CAME TO SEE THE PATIENT AT BEDSIDE. PT C/O NAUSEA DUE TO " HAVING SO MUCH BLOOD DRAWN OUT", PT THEN REQUESTED ORANGE JUICE. PT WAS EDUCATED ON FOODS WITH HIGH POTASSIUM. WILL CONTINUE TO MONITOR PT UNTIL REPORT IS GIVEN TO ONCOMING SHIFT.
--- NOTE | 2019-09-13 07:13 | NUR ---
ASSUMED CARE: PT AWAKE, TALKING TO STAFF, STATES HE FEELS ANXIOUS AND HASN'T SLEPT. GOT VITALS, CHECKED ICE FOR 24 HOUR URINE. TOLD PT WE WOULD TRY TO LET HIM SLEEP FOR A COUPLE HOURS. NO FURTHER NEEDS OR CONCERNS AT THIS TIME.
--- NOTE | 2019-09-13 18:10 | NUR ---
SHIFT SUMMARY: PT HAS BEEN ATTEMPTING TO NAP THIS AFTERNOON. CIWA 2 MAX TODAY. DENIES NEEDS FOR LIBRIUM OR ANXIETY MEDS AT THIS TIME. BUMEX FOR DIURESIS. 24 HOUR URINE STILL OCCURRING UNTIL 1AM. NO ACUTE NEEDS OR CONCERNS AT THIS TIME.
--- NOTE | 2019-09-13 21:11 | NUR ---
Assumed Care Pt alert and oriented, able to express needs with call light, VSS. CIWA of 1 at time of arrival, pt endoreses mild anxiety, denies all other withdrawl symptoms. Pt appears calm and cooperative. Pt educated on CIWA throughout night and purpose to monitor sx of withdrawl. Pt verbalized understanding and appreciation to staff. See shift assessment for detailed assessment. Pt up in room for BM this shift, steady gait. No acute concerns to note at this time. will continue to monitor.
[2019-09-14 01:58] LABS: Protein, Urine Quantitative 9.7 mg/dL (0.0-11.9)
[2019-09-14 04:34] LABS: Hematocrit 40.9 % (37.0-53.0); Hemoglobin 13.5 g/dL (13.5-17.5)
[2019-09-14 04:50] LABS: Albumin, Blood 2.7 g/dL (3.4-5.0); Anion Gap 9 mmol/L (6-16); Blood Urea Nitrogen 55 mg/dL (8-24); Bun/Creatinine Ratio 18.7 (12.0-20.0); CO2, Blood 23 mmol/L (21-32); Calcium, Blood 8.1 mg/dL (8.5-10.1); Chloride, Blood 110 mmol/L (98-108); Creatinine, Blood 2.94 mg/dL (0.60-1.20); Glomerular Filtration Rate 23 (60-); Glucose, Blood 89 mg/dL (70-99); Phosphorus, Blood 5.2 mg/dL (2.5-4.9); Potassium, Blood 3.9 mmol/L (3.5-5.5); Sodium, Blood 142 mmol/L (136-145)
[2019-09-14 06:08] LABS: HBSAG SCREEN Negative (Negative); HEP A AB, IGM Negative (Negative); HEP B CORE AB, IGM Negative (Negative); HEP C VIRUS AB >11.0 (0.0-0.9)
--- NOTE | 2019-09-14 06:19 | NUR ---
Shift Summary Pt with no acute events overnight. CIWA 0 throughout shift. Pt asleep for approx 10 hrs. Up to bathroom for voiding, 24 hour urine collected and walked to lab at 0115. Pt remains alert and oriented, VSS, pt has been calm and cooperative, appreciative of staff. No changes from initial shit assessment. Will continue to monitor.
[2019-09-14 11:08] LABS: Antinuclear Antibody Screen Positive (Negative)
--- NOTE | 2019-09-14 11:16 | NUR ---
UPDATE PT ALERT AND ORIENTED. VS STABLE. HR AFLUTTER IN THE 80'S. PT DENIES ANY PAIN. DR. ROGER IN WITH ORDERS TO TRANSFER TO MEDICAL FLOOR. REPORT CALLED TO MEDICAL FLOOR RN. PT TO BE TAKEN UP BY WHEELCHAIR.
--- NOTE | 2019-09-14 12:49 | NUR ---
PATIENT ARRIVED TO THE UNIT VIA W/C. PATIENT IS ALERT AND ORIENTED. INDEPENDENT IN THE ROOM. NO COVERAGE FOR INSULIN REQUIRED PRIOR TO LUNCH. PATIENT IN GOOD SPIRITS.
--- NOTE | 2019-09-14 18:23 | NUR ---
SHIFT SUMMARY NO ACUTE CAHNGES SINCE ASSUMING CARE OF PATIENT. NO COMPLAINTS. VSS
--- NOTE | 2019-09-15 05:05 | NUR ---
PT. WITH HR IN THE 40'S. PT. ASYMPTOMATIC. NOTIFIED DR. LEE. RECEIVED ORDER FOR TELEMETRY AND CONT TO MONITOR.
[2019-09-15 05:34] LABS: Hematocrit 41.8 % (37.0-53.0); Hemoglobin 13.3 g/dL (13.5-17.5)
[2019-09-15 06:12] LABS: Albumin, Blood 2.6 g/dL (3.4-5.0); Anion Gap 8 mmol/L (6-16); Blood Urea Nitrogen 50 mg/dL (8-24); Bun/Creatinine Ratio 22.4 (12.0-20.0); CO2, Blood 27 mmol/L (21-32); Calcium, Blood 8.4 mg/dL (8.5-10.1); Chloride, Blood 109 mmol/L (98-108); Creatinine, Blood 2.23 mg/dL (0.60-1.20); Glomerular Filtration Rate 32 (60-); Glucose, Blood 93 mg/dL (70-99); Magnesium, Blood 1.8 mg/dL (1.6-2.4); Phosphorus, Blood 4.5 mg/dL (2.5-4.9); Potassium, Blood 3.5 mmol/L (3.5-5.5); Sodium, Blood 144 mmol/L (136-145)
--- NOTE | 2019-09-15 06:20 | NUR ---
SHIFT SUMMARY- PT. A&O, PLEASANT AND COOPERATIVE WITH CARE. HAD RESTFUL NIGHT. NO APPARENT DISTRESS NOTED. DENIED ANY PAIN OR DISCOMFORT. C/O 1X OF FEELING ANXIOUS. TREATED PER EMAR WITH GOOD RELIEF. AM HR IN THE LOW 40'S, PT. ASYMPTOMATIC. DR. LEE WAS NOTIFED. ORDER RECEIVED TO CONT TO MONITOR AND PLACE ON TELEMETRY. PER SENIOR PEOPLESOFT DEVELOPER PT. HR 82/AFLUTTER. PT. RESTING COMFORTABLY IN BED, NO APPARENT DISTRESS NOTED. DENIES COMPLAINTS. CALL LIGHT WITHIN REACH AND SIDE RAILS UP X2. WILL CONT TO MONITOR.
--- NOTE | 2019-09-15 12:45 | NUR ---
Pt resting in bed upon arrival and is A&O. Pt denies pain and nausea. Pt reports mild anxiety due to finances and not working. Pt reports his dyspnea has improved since being admitted to hospital. Pt appears somewhat withdrawn as evidenced by changing the subject regarding his health. Attempted to engage in therapeutic discussion regarding advanced care planning. Discussed the importance of seeing his PCP and complying with recommendations regarding his kidney and heart issues. Pt states "I'm doing better than when I came in". He reports he is able to ambulate considerable distance now before becoming SOB. Pt changes the subject and discusses his finances further. Offered therapeutic listening. This RN re-enforced the importance of seeing his PCP regarding his health issues. Pt reports no other concerns at this time. Spoke with Bedside TAYLER Valerio and discussed case. Palliative Care will remain available.
[2019-09-15 13:09] LABS: A/G RATIO 1.2 (0.7-1.7); ALPHA-1-GLOBULIN 0.3 g/dL (0.0-0.4); ALPHA-2-GLOBULIN 0.5 g/dL (0.4-1.0); BETA GLOBULIN 0.7 g/dL (0.7-1.3); GAMMA GLOBULIN 1.2 g/dL (0.4-1.8); GLOBULIN, TOTAL 2.7 g/dL (2.2-3.9); IMMUNOGLOBULIN A, QN, SERUM 264 mg/dL (90-386); IMMUNOGLOBULIN G, QN, SERUM 1235 mg/dL (700-1600); IMMUNOGLOBULIN M, QN, SERUM 141 mg/dL (20-172); M-SPIKE Not Observed g/dL (Not Observed); PROTEIN, TOTAL, SERUM 5.7 g/dL (6.0-8.5)
--- NOTE | 2019-09-15 13:48 | NUR ---
PT RESTING QUIETLY AT START OF SHIFT. PLEASANT AND CO-OP. DENIED NEEDS. INDEPENDENT IN RM AND TO BTHRM. ABLE TO WALK HALLS WITH P/T AND LATER WITH PROJECT INTERNSH[employer]. DR CANADA IN TO SEE PT THIS AM. PALLIATIVE CARE HERE THIS AFTERNOON. PT APPEARED TO CHANGE SUBJECT WHEN DISCUSSING CARDIAC AND KIDNEY ISSUES. PT LATER BECOMING ANXIOUS D/T FINANCES, PER PROJECT INTERNSHIP. PT WITH HX OF ETOH, METH AND OTHER DRUG ABUSE. A-FLUTTER @ 87 PER TELE MX. CAPSULE UNABLE TO ACCURATELY READ HR WHEN VS TAKEN. DR MACHADO HERE TO SEE PT PRIOR TO START OF DAY SHIFT. CALL LT IN REACH. DENIED FURTHER NEEDS.
--- NOTE | 2019-09-15 17:21 | NUR ---
PATIENT IS ALERT AND ORIENTED AND COOPERATIVE WITH CARE. PATIENT COMPLAINED OF FEELING ANXIOUS AND UPSET THIS AFTERNOON, MEDICATED PER EMAR. NO COMPLAINTS OF PAIN. PATIENT IS INDEPENDENT IN HIS ROOM. WILL CONTINUE TO MONITOR.
[2019-09-16 05:41] LABS: Albumin, Blood 2.6 g/dL (3.4-5.0); Anion Gap 7 mmol/L (6-16); Blood Urea Nitrogen 35 mg/dL (8-24); Bun/Creatinine Ratio 20.8 (12.0-20.0); CO2, Blood 27 mmol/L (21-32); Calcium, Blood 7.9 mg/dL (8.5-10.1); Chloride, Blood 107 mmol/L (98-108); Creatinine, Blood 1.68 mg/dL (0.60-1.20); Glomerular Filtration Rate 45 (60-); Glucose, Blood 126 mg/dL (70-99); Magnesium, Blood 1.6 mg/dL (1.6-2.4); Potassium, Blood 3.4 mmol/L (3.5-5.5); Sodium, Blood 141 mmol/L (136-145)
[2019-09-16 05:44] LABS: Phosphorus, Blood 3.8 mg/dL (2.5-4.9)
--- NOTE | 2019-09-16 06:11 | NUR ---
PT. HAD NO ACUTE CHANGES OVERNIGHT. ASLEEP T/O THE NIGHT. NO APPARENT DISTRESS NOTED. DENIED ANY PAIN OR DISCOMFORT. K LEVEL THIS AM AT 3.4. PT. TO START PO KCL DAILY PER ORDER. PLAN FOR POSS D/C, AWAITING 24HR URINE RESULTS. CALL LIGHT WITHIN REACH AND SIDE RAILS UP X2. WILL CONT TO MONITOR.
[2019-09-16 07:10] LABS: ANTIGLOMERULAR BM AB 3 units (0-20)
[2019-09-16] MEDS ORDERED: BUME1 PO (10:45)
[2019-09-16] MEDS ORDERED: BASAGLAR K100 UNIT/1 SC (10:45)
[2019-09-16] MEDS ORDERED: B-1100 M1 PO (10:46)
[2019-09-16] MEDS ORDERED: K-Dur10 MEQ PO (10:46)
--- NOTE | 2019-09-16 10:53 | NUR ---
VASCULAR ACCESS FIELD START IV REMOVED DUE TO PT DISCHARGE ON 09/16/2019 AT 1050. IV D/C WNL. CATHETER INTACT. PATIENT TOLERATED REMOVAL WELL.
--- NOTE | 2019-09-16 11:48 | NUR ---
Discharge instructions reviewed with patient. Reviewed diabetes education, patient selfadministered am dose of lantus appropriately. Gave hard rx to pickup glucometer, lancets, strips from medical supply store. Peripheral iv removed. Discussed follow up with pcp, patient verbalized understanding, appt already made for later this month. Provided education regarding diabetes and testing, new meds, and follow up. Patient verbalized understanding.
[2019-09-16 14:06] LABS: ANA Pattern Homogenous
[2019-09-17 13:11] LABS: ANA DIRECT Positive (Negative); ANTI-CENTROMERE B ANTIBODIES <0.2 AI (0.0-0.9); ANTI-DNA (DS) AB QN 15 IU/mL (0-9); ANTI-JO-1 <0.2 AI (0.0-0.9); ANTICHROMATIN ANTIBODIES <0.2 AI (0.0-0.9); ANTIMYELOPEROXIDASE (MPO) ABS <9.0 U/mL (0.0-9.0); ANTIPROTEINASE 3 (PR-3) ABS <3.5 U/mL (0.0-3.5); ANTIRIBOSOMAL P ANTIBODIES <0.2 AI (0.0-0.9); ANTISCLERODERMA-70 ANTIBODIES <0.2 AI (0.0-0.9); ATYPICAL PANCA <1:20 titer (Neg:<1:20); CYTOPLASMIC (C-ANCA) <1:20 titer (Neg:<1:20); PERINUCLEAR (P-ANCA) <1:20 titer (Neg:<1:20); RNP ANTIBODIES <0.2 AI (0.0-0.9); SJOGREN'S ANTI-SS-A 0.3 AI (0.0-0.9); SJOGREN'S ANTI-SS-B <0.2 AI (0.0-0.9); SMITH ANTIBODIES <0.2 AI (0.0-0.9); SMITH/RNP ANTIBODIES <0.2 AI (0.0-0.9)
[2019-09-17 14:11] LABS: M-SPIKE, % Not Observed % (Not Observed); PROTEIN,TOTAL,URINE 8.3 mg/dL (Not Estab.)
[2019-09-22] MEDS ORDERED: DOCU100 PO (11:53)
[2019-09-22] MEDS ORDERED: SENN187 PO (11:54)
[2019-09-22] MEDS ORDERED: LISI5 PO (11:55)
== END 2019-09-16 12:20 | disposition home or self-care (01) | DRG 682 ==
LOC: ER 16:54 → PCU 20:24 → MEDS 09-14 11:24 → ENPENDDIS 09-16 10:51 → MEDS 09-16 12:20
PROVIDERS: Emergency Medicine; Internal Medicine Nephrology; Nurse Practitioner Acute Care; ADMIT Hospitalist
DX: N17.9 Acute kidney failure, unspecified (principal); I50.23 Acute on chronic systolic (congestive) heart failure; I13.0 Hypertensive heart and chronic kidney disease with heart failure and stage 1 through stage 4 chronic kidney disease, or unspecified chronic kidney disease; I42.9 Cardiomyopathy, unspecified; E87.2 Acidosis; E11.22 Type 2 diabetes mellitus with diabetic chronic kidney disease; N18.3 Chronic kidney disease, stage 3 (moderate); Z79.4 Long term (current) use of insulin; F15.10 Other stimulant abuse, uncomplicated; Z91.14 Patient's other noncompliance with medication regimen; F10.10 Alcohol abuse, uncomplicated; E78.5 Hyperlipidemia, unspecified; E87.5 Hyperkalemia; G47.33 Obstructive sleep apnea (adult) (pediatric); F17.210 Nicotine dependence, cigarettes, uncomplicated; I48.0 Paroxysmal atrial fibrillation; I25.10 Atherosclerotic heart disease of native coronary artery without angina pectoris; E83.39 Other disorders of phosphorus metabolism; F41.9 Anxiety disorder, unspecified
CPT/HCPCS: 36415; 71046; 76770; 80053; 80069; 80074; 81050; 82140; 82550; 82784; 82947; 83516; 83520; 83735; 83880; 84100; 84156; 84165; 84166; 84484; 84550; 85014; 85018; 85025; 85610; 85730; 86038; 86039; 86256; 86334; 86335; 93005; 93010; 94762; 96374; 96375; 97116; 97161; 97530; 99285-25; A9270-GY; G0480; J0610; J1815

== ENCOUNTER 2020-02-22 14:58 | Emergency (ER) | payer OTHER ==
[~2020-02-22] VITALS: Ht 185.4 cm; Wt 90.7 kg
[~2020-02-22 14:58] MED LIST changes: +ATOR40TA PO; +Amiodarone HCl200 MG; +Amiodarone HCl200 MG PO; +B-1100 M1 PO; +BASAGLAR K100 UNIT/1 SC; +BUME1 PO; +CALC.25 PO; +DOCU100 PO; +FURO40 PO; +Humalog100 UNIT/3 SC; +ISOSORBIDE MONO60 MG PO; +K-Dur10 MEQ PO; +METO50ER PO; +Nicoderm Cq1 EAC1 TOP; +SENN187 PO; +XARELTO15 MG PO
== END 2020-02-22 20:02 | disposition home or self-care (01) ==
LOC: ER 14:58
DX: H57.89 Other specified disorders of eye and adnexa (principal); I13.0 Hypertensive heart and chronic kidney disease with heart failure and stage 1 through stage 4 chronic kidney disease, or unspecified chronic kidney disease; N18.3 Chronic kidney disease, stage 3 (moderate); I50.22 Chronic systolic (congestive) heart failure; E11.22 Type 2 diabetes mellitus with diabetic chronic kidney disease; I48.91 Unspecified atrial fibrillation; I25.10 Atherosclerotic heart disease of native coronary artery without angina pectoris; I25.2 Old myocardial infarction; I49.3 Ventricular premature depolarization; F17.210 Nicotine dependence, cigarettes, uncomplicated; Z79.4 Long term (current) use of insulin; Z79.899 Other long term (current) drug therapy
CPT/HCPCS: 99282

== ENCOUNTER 2020-04-07 23:09 | Inpatient (IN) | payer OTHER ==
[~2020-04-07] VITALS: Ht 185.4 cm; Wt 100.0 kg
[~2020-04-07 23:09] MED LIST changes: -Amiodarone HCl200 MG
[2020-04-07 23:40] LABS: BASOPHILS ABSOLUTE AUTO 0.06 K/mm3 (0.00-0.23); BASOPHILS PERCENT AUTO 1 % (0-2); EOSINOPHILS ABSOLUTE AUTO 0.27 K/mm3 (0.00-0.68); EOSINOPHILS PERCENT AUTO 2 % (0-6); Hematocrit 48.1 % (37.0-53.0); Hemoglobin 15.6 g/dL (13.5-17.5); IMMATURE GRAN ABSOLUTE AUTO 0.04 K/mm3 (0.00-0.10); IMMATURE GRAN PERCENT AUTO 0 % (0-1); LYMPHOCYTES ABSOLUTE AUTO 5.55 K/mm3 (0.84-5.20); LYMPHOCYTES PERCENT AUTO 45 % (21-46); MONOCYTES ABSOLUTE AUTO 1.04 K/mm3 (0.16-1.47); MONOCYTES PERCENT AUTO 8 % (4-13); Mean Corpuscular HGB 29.9 pg (26.0-34.0); Mean Corpuscular HGB Conc 32.4 g/dL (31.5-36.5); Mean Corpuscular Volume 92 fL (80-100); Mean Platelet Volume 11.4 fL (9.1-12.4); NEUTROPHILS ABSOLUTE AUTO 5.45 K/mm3 (1.96-9.15); NEUTROPHILS PERCENT AUTO 44 % (41-73); Platelet Count 184 K/mm3 (150-400); RDW Coefficient Variation 12.9 % (11.7-14.2); RDW Standard Deviation 43.5 fL (35.1-46.3); Red Blood Cell Count 5.22 M/mm3 (4.30-5.90); White Blood Cell Count 12.41 K/mm3 (4.00-11.30)
[2020-04-07 23:54] LABS: International Normalized Ratio 1.29; Prothrombin Time Results 13.6 Sec (9.7-11.5)
[2020-04-07 23:59] LABS: Source, Urine Voided
[2020-04-08 00:05] LABS: Appearance, Urine Clear (Clear); Bilirubin, Urine Neg (Neg); Blood, Urine Neg (Neg); Color, Urine Yellow (P-Yellow); Glucose Qualitative, Urine Neg (Neg); Ketones, Urine Neg (Neg); Leukocyte Esterase, Urine Neg (Neg); Nitrite, Urine Neg (Neg); Protein, Urine 2+ (Neg); Urobilinogen, Urine NORM (Normal)
[2020-04-08 00:05] LABS: Alanine Aminotransfer (ALT/SGP 48 U/L (12-78); Albumin, Blood 3.2 g/dL (3.4-5.0); Albumin/Globulin Ratio 0.8 (0.8-1.8); Alk Phos 170 U/L (50-136); Anion Gap 6 mmol/L (6-16); Aspartate Aminotrans (AST/SGOT 43 U/L (12-37); Bilirubin, Total 0.8 mg/dL (0.1-1.0); Blood Urea Nitrogen 49 mg/dL (8-24); Bun/Creatinine Ratio 27.2 (12.0-20.0); CO2, Blood 27 mmol/L (21-32); Calcium, Blood 8.6 mg/dL (8.5-10.1); Chloride, Blood 104 mmol/L (98-108); Ethanol (Alcohol), Blood, Med <3 mg/dL; Globulin, Blood 4.1 g/dL (2.2-4.0); Glomerular Filtration Rate 41 (60-); Glucose, Blood 247 mg/dL (70-99); Potassium, Blood 3.5 mmol/L (3.5-5.5); Sodium, Blood 137 mmol/L (136-145); Total Protein, Blood 7.3 g/dL (6.4-8.2); Troponin I 0.063 ng/mL (0.000-0.040)
[2020-04-08 00:11] LABS: Bacteria Not Seen /hpf; Red Blood Cells, Urine Not Seen /hpf (0-2); Squamous Epithelial Cells Not Seen /hpf (Few); White Blood Cells, Urine Not Seen /hpf (0-5)
[2020-04-08 00:17] LABS: U Amphetamine Screen DETECTED; U Barbituate Screen Not Detected; U Benzodiazapine Screen Not Detected; U Buprenorphine Screen Not Detected; U Cannabinoids Screen Not Detected; U Cocaine Screen Not Detected; U Methadone Screen Not Detected; U Methamphetamine Screen DETECTED; U Opiates Screen Not Detected; U Oxycodone Screen Not Detected; U Phencyclidine Screen Not Detected; U Propoxyphene Screen Not Detected
[2020-04-08] MEDS ORDERED: COLACE100 MG (00:31)
[2020-04-08] MEDS ORDERED: SENNA LAXATIVE8.6 MG PO (00:31)
[2020-04-08] MEDS ORDERED: HUMALOG KW100 UNIT/1 SC (02:58)
[2020-04-08 05:15] LABS: BASOPHILS ABSOLUTE AUTO 0.07 K/mm3 (0.00-0.23); BASOPHILS PERCENT AUTO 1 % (0-2); EOSINOPHILS ABSOLUTE AUTO 0.34 K/mm3 (0.00-0.68); EOSINOPHILS PERCENT AUTO 3 % (0-6); Hematocrit 46.2 % (37.0-53.0); Hemoglobin 15.1 g/dL (13.5-17.5); IMMATURE GRAN ABSOLUTE AUTO 0.04 K/mm3 (0.00-0.10); IMMATURE GRAN PERCENT AUTO 0 % (0-1); LYMPHOCYTES ABSOLUTE AUTO 6.56 K/mm3 (0.84-5.20); LYMPHOCYTES PERCENT AUTO 48 % (21-46); MONOCYTES ABSOLUTE AUTO 1.37 K/mm3 (0.16-1.47); MONOCYTES PERCENT AUTO 10 % (4-13); Mean Corpuscular HGB 29.8 pg (26.0-34.0); Mean Corpuscular HGB Conc 32.7 g/dL (31.5-36.5); Mean Corpuscular Volume 91 fL (80-100); Mean Platelet Volume 11.7 fL (9.1-12.4); NEUTROPHILS ABSOLUTE AUTO 5.16 K/mm3 (1.96-9.15); NEUTROPHILS PERCENT AUTO 38 % (41-73); Platelet Count 172 K/mm3 (150-400); RDW Coefficient Variation 12.9 % (11.7-14.2); RDW Standard Deviation 43.4 fL (35.1-46.3); Red Blood Cell Count 5.06 M/mm3 (4.30-5.90); White Blood Cell Count 13.54 K/mm3 (4.00-11.30)
--- NOTE | 2020-04-08 05:47 | NUR ---
DIRECTOR OF SUSTAINABLE DESIGN SUMMARY PT ADMITTED FROM ED D/T CHF EXACERBATION, PT A&OX4, PLEASANT AND COOPERATIVE TO CARE. NO C/O PAIN OR ANY DISCOMFORT AT TIME OF ADMISSION, RESTED IN BED T/O REMAINING OF SHIFT. PT HAS +2 EDEMA ON BLE AND DEPENDENT EDEMA ON ADBOMINAL AREA. NO SOB NOTED, NO C/O CHEST PAIN, DENIES N&V OR GI PAIN. PT REPORTED DAILY USE OF METHAMPHETAMINES. NO ACUTE CHANGES NOTED TO MENTATION NOTED. PT DEMONSTRATED PROPER USE OF CALL LIGHT, INDEPENDENT IN ROOM. VSS, WILL CONT TO MONITOR PT, WILL REPORT TO ONCOMING RN.
[2020-04-08 05:51] LABS: Albumin, Blood 3.1 g/dL (3.4-5.0); Albumin/Globulin Ratio 0.8 (0.8-1.8); Bilirubin, Total 0.9 mg/dL (0.1-1.0); Bun/Creatinine Ratio 28.7 (12.0-20.0); Calcium, Blood 8.5 mg/dL (8.5-10.1); Creatinine, Blood 1.74 mg/dL (0.60-1.20); Globulin, Blood 3.8 g/dL (2.2-4.0); Potassium, Blood 3.7 mmol/L (3.5-5.5); Total Protein, Blood 6.9 g/dL (6.4-8.2)
--- NOTE | 2020-04-08 18:22 | NUR ---
PT AOX4 AND COOPERATIVE OF CARE. PT HAS BEEN IN BED MOST OF THE DAY. PT DOES GET UP TO GO OUT AND SMOKE. BLADDER SCAN EARLIER SHOWED 472, BUT DUE TO DESTIENDED ABDOMEN THIS KEYMODULE ASSEMBLY SUPERVISOR WAITED FOR ULTRA SOUND TO VERIFY BLADDER AMOUNT PT HAD POSSIBLE ASCITES. ULTRA SOUND CONFIRMED ASCITES AND SHOWED BLADDER HOLDING 104MLS SO NO SMITH ORDER WAS NEEDED. PT HAS BEEN VOIDING SMALL AMOUNTS AROUND 100MLS PER VOID. PT DID STATE HE HAD SOME ABDONIMAL PAIN AND WAS TREATED PER EMAR. NO DISTRESS NOTED AT THIS TIME WILL CONTINUE TO MONITOR. CALL LIGHT IS WITHIN REACH.
--- NOTE | 2020-04-09 04:32 | NUR ---
SHIFT SUMMARY ASSUMED CARE OF PT AT 1900. PT IS A/OX4, DENIES N/T IN EXTREMITES BUT HE HAS +2 PITTING EDEMA. PT ALSO HAS EDEMA IN HIS ABD. TELE SHOWS AFIB AVERAGING AROUND 100. PT WAS EXPIRIENCING SOB THIS PM, PT STATED THAT HE FELT LIKE HIS CHEST WAS TOO HEAVY WHEN WOULD LY DOWN TO SLEEP. HOSPITALIST NOTIFIED AND CPAP WAS ORDERED. PT TOLERATED FOR ABOUT 1 HOUR THEN WAS ABLE TO SLEEP FOR ABOUT 2 WITHOUT IT. PT DID NOT LIKE WHEN THE OXIMETER WOULD BEEP SO HE RIPPED IT OFF AND TURNED IT OFF HIMSELF. PT EDUCATED ABOUT WHAT THE MACHINE IS FOR AND TO ASK FOR HELP. PT URINATES ONLY ABOUT 100CC AT A TIME. PT IS INDEPENDENT TO BATHROOM. PT ALSO GOES OUT TO SMOKE, PT ADVISED NOT TO SMOKE TO HELP WITH SOB BUT PT WENT OUT ANYWAYS. CALL LIGHT IN REACH, BED IN LOWEST POSTION.
[2020-04-09 04:43] LABS: Hematocrit 43.9 % (37.0-53.0); Hemoglobin 14.6 g/dL (13.5-17.5); Mean Corpuscular HGB 29.7 pg (26.0-34.0); Mean Corpuscular HGB Conc 33.3 g/dL (31.5-36.5); Mean Corpuscular Volume 89 fL (80-100); Mean Platelet Volume 11.4 fL (9.1-12.4); Platelet Count 169 K/mm3 (150-400); RDW Coefficient Variation 12.8 % (11.7-14.2); RDW Standard Deviation 41.8 fL (35.1-46.3); Red Blood Cell Count 4.92 M/mm3 (4.30-5.90); White Blood Cell Count 12.31 K/mm3 (4.00-11.30)
[2020-04-09 05:06] LABS: Albumin, Blood 2.8 g/dL (3.4-5.0); Anion Gap 6 mmol/L (6-16); Blood Urea Nitrogen 46 mg/dL (8-24); Bun/Creatinine Ratio 29.3 (12.0-20.0); CO2, Blood 26 mmol/L (21-32); Calcium, Blood 8.5 mg/dL (8.5-10.1); Chloride, Blood 108 mmol/L (98-108); Creatinine, Blood 1.57 mg/dL (0.60-1.20); Glomerular Filtration Rate 48 (60-); Glucose, Blood 99 mg/dL (70-99); Phosphorus, Blood 3.7 mg/dL (2.5-4.9); Potassium, Blood 3.6 mmol/L (3.5-5.5); Sodium, Blood 140 mmol/L (136-145)
--- NOTE | 2020-04-09 09:21 | NUR ---
AM THE PT IS A/OX3, PLEASANT AND COOPERATIVE, THE PT APPEARS TO BE BREATHING EASILY ON RA, BREATH SOUNDS WERE CLEAR T/O THIS AM, HOWEVER THE PT STATES THAT HE STILL FEELS SOB, PTS ABD IS FIRM AND DISTENDED/EDEMETUS, MAY BE COTRIBUTING TO THE SOB, PT DENIES ANY PAIN AT THIS TIME, CALL LIGHT IN REACH, PT IS UP IND
[2020-04-09 12:43] LABS: Protein, Urine Quantitative 8.1 mg/dL (0.0-11.9)
--- NOTE | 2020-04-09 17:33 | NUR ---
PT IS A/OX3, PLEASANT AND COOPERATIVE, THE PT IS UP IND IN HIS ROOM AND GOES OUTSIDE TO SMOKE SEVERAL TIMES DURING THE DAY, THE PT SOMETIMES GOES OUT FOR AN EXTENDED AMOUNT OF TIME, THE PT WAS ASKED TO LIMIT HIS TIME OUT SIDE DUE TO THE NEED TO MONITOR HIS HEART RYTHM AND BREATHING, THE PT REPORTED TODAY THAT HE WAS NOT GETTING AN ADEQUATE AMOUNT OF SLEEP DUE TO PANIC ATTACKS HE WAS TRYING TO FALL ASLEEP WITH AND WITHOUT THE CPAP, DR. ROGER WAS NOTIFIED ATIVAN WAS ORDERED AND GIVEN PER THE PTS REQUEST, PT REPORTED THAT HE WOULD LIMIT HIS TIME SPENT AND AMOUNT OF TIMES OUTSIDE IF HE WAS ABLE TO RELAX, CALL LIGHT IN REACH, WILL CONTINUE TO MONITOR AND ASSESS FOR CHANGES
--- NOTE | 2020-04-10 04:32 | NUR ---
SHIFT SUMMARY PT UP INDEPENDENTLY. GOING OUTSIDE TO SMOKE A FEW TIMES THROUGHOUT THE NIGHT. PT CONTINUES TO HAVE SOME SOB. PT REPORTS THAT HE FEELS IF HIS SOB IS MOSTLY RELATED TO HIS ABD PUSHING UP ON HIS LUNGS. PT'S ABD IS FIRM AND DISTENDED. PT REPORTS THAT AT TIMES HE FEELS IF HE HAS TO "GASP FOR AIR". STATING THAT IT CAUSES HIM TO "HAVE A PANIC ATTACK". ATIVAN GIVEN X 1 THIS SHIFT. PT APPEARED TO SLEEP WELL FOLLOWING. VITAL SIGNS STABLE. NO ACUTE CHANGES THIS SHIFT. WILL CONTINUE TO MONITOR AND REPORT TO DAY RN.
[2020-04-10 04:50] LABS: Hematocrit 42.3 % (37.0-53.0)
[2020-04-10 05:36] LABS: Albumin, Blood 2.8 g/dL (3.4-5.0); Anion Gap 6 mmol/L (6-16); Blood Urea Nitrogen 43 mg/dL (8-24); Bun/Creatinine Ratio 27.9 (12.0-20.0); CO2, Blood 28 mmol/L (21-32); Calcium, Blood 8.5 mg/dL (8.5-10.1); Chloride, Blood 108 mmol/L (98-108); Creatinine, Blood 1.54 mg/dL (0.60-1.20); Glomerular Filtration Rate 49 (60-); Glucose, Blood 86 mg/dL (70-99); Magnesium, Blood 2.1 mg/dL (1.6-2.4); Phosphorus, Blood 3.8 mg/dL (2.5-4.9); Potassium, Blood 3.6 mmol/L (3.5-5.5); Sodium, Blood 142 mmol/L (136-145)
--- NOTE | 2020-04-10 11:29 | NUR ---
PT DISCHARGED THE PT VERBALIZED UNDERSTANDING OF THE DC INSTRUCTIONS, PT APPEARED TO BE BREATHING EASILY ON RA AT THE TIME OF DC, THE PT DECLINED THE WHEELCHAIR AND WALKED OUT UNASSISTED TO THE FRONT, THE PT WAS REMINDED TO CALL HIS PCP FOR FOLLOW UP ON SATURDAY TO SCHEDULE AN APPOINTMENT. THE PT WAS REMINDED TO KEEP HIS APPOINTMENT WITH DR. MACHADO
== END 2020-04-10 11:16 | disposition home or self-care (01) | DRG 291 ==
LOC: ER 23:09 → MEDS 23:10 → ER 04-08 00:33 → MEDS 04-08 00:33
PROVIDERS: Emergency Medicine; Internal Medicine; Internal Medicine Nephrology; ADMIT Internal Medicine
DX: I13.0 Hypertensive heart and chronic kidney disease with heart failure and stage 1 through stage 4 chronic kidney disease, or unspecified chronic kidney disease (principal); I50.43 Acute on chronic combined systolic (congestive) and diastolic (congestive) heart failure; I48.19 Other persistent atrial fibrillation; E87.1 Hypo-osmolality and hyponatremia; N17.9 Acute kidney failure, unspecified; N25.81 Secondary hyperparathyroidism of renal origin; I42.9 Cardiomyopathy, unspecified; N18.32 Chronic kidney disease, stage 3b; E11.22 Type 2 diabetes mellitus with diabetic chronic kidney disease; G47.33 Obstructive sleep apnea (adult) (pediatric); F19.10 Other psychoactive substance abuse, uncomplicated; E88.09 Other disorders of plasma-protein metabolism, not elsewhere classified; R80.9 Proteinuria, unspecified; E78.5 Hyperlipidemia, unspecified; I25.10 Atherosclerotic heart disease of native coronary artery without angina pectoris; I25.2 Old myocardial infarction; Z79.4 Long term (current) use of insulin; Z79.01 Long term (current) use of anticoagulants
CPT/HCPCS: 36415; 71045; 76770; 80053; 80069; 81001; 82947; 83036; 83690; 83735; 83880; 84156; 84484; 85014; 85018; 85025; 85027; 85610; 93005; 93010; 94660; 94762; 96375; 99285-25; A9270; A9270-GY; G0480; J1940

== ENCOUNTER 2020-05-01 19:24 | Emergency (ER) | payer OTHER ==
[~2020-05-01] VITALS: Ht 185.4 cm; Wt 99.8 kg
[~2020-05-01 19:24] MED LIST changes: +COLACE100 MG; +HUMALOG KW100 UNIT/1 SC; +SENNA LAXATIVE8.6 MG PO
[2020-05-01] MEDS ORDERED: B-1100 M1 PO (19:39)
[2020-05-01] MEDS ORDERED: METO5 PO (19:43)
[2020-05-01] MEDS ORDERED: SPIR25 PO (19:46)
[2020-05-01 19:56] LABS: Source, Urine Voided
[2020-05-01 20:01] LABS: Appearance, Urine Clear (Clear); Bilirubin, Urine Neg (Neg); Blood, Urine Neg (Neg); Color, Urine Yellow (P-Yellow); Glucose Qualitative, Urine Neg (Neg); Ketones, Urine Neg (Neg); Leukocyte Esterase, Urine Neg (Neg); Nitrite, Urine Neg (Neg); Protein, Urine Neg (Neg); Urobilinogen, Urine NORM (Normal)
[2020-05-01 20:06] LABS: BASOPHILS ABSOLUTE AUTO 0.07 K/mm3 (0.00-0.23); BASOPHILS PERCENT AUTO 1 % (0-2); EOSINOPHILS ABSOLUTE AUTO 0.27 K/mm3 (0.00-0.68); EOSINOPHILS PERCENT AUTO 3 % (0-6); Hematocrit 44.8 % (37.0-53.0); Hemoglobin 14.7 g/dL (13.5-17.5); Mean Corpuscular HGB 29.9 pg (26.0-34.0); Mean Corpuscular HGB Conc 32.8 g/dL (31.5-36.5); Mean Corpuscular Volume 91 fL (80-100); Mean Platelet Volume 11.7 fL (9.1-12.4); Platelet Count 174 K/mm3 (150-400); RDW Coefficient Variation 13.8 % (11.7-14.2); RDW Standard Deviation 46.1 fL (35.1-46.3); Red Blood Cell Count 4.91 M/mm3 (4.30-5.90)
[2020-05-01 20:08] LABS: IMMATURE GRAN ABSOLUTE AUTO 0.01 K/mm3 (0.00-0.10); IMMATURE GRAN PERCENT AUTO 0 % (0-1); LYMPHOCYTES ABSOLUTE AUTO 4.01 K/mm3 (0.84-5.20); LYMPHOCYTES PERCENT AUTO 41 % (21-46); MONOCYTES ABSOLUTE AUTO 0.81 K/mm3 (0.16-1.47); MONOCYTES PERCENT AUTO 8 % (4-13); NEUTROPHILS ABSOLUTE AUTO 4.63 K/mm3 (1.96-9.15); NEUTROPHILS PERCENT AUTO 47 % (41-73)
[2020-05-01 20:21] LABS: Albumin, Blood 3.5 g/dL (3.4-5.0); Albumin/Globulin Ratio 0.8 (0.8-1.8); Bun/Creatinine Ratio 15.9 (12.0-20.0); Calcium, Blood 9.4 mg/dL (8.5-10.1); Creatinine, Blood 1.57 mg/dL (0.60-1.20); Globulin, Blood 4.5 g/dL (2.2-4.0); Potassium, Blood 3.7 mmol/L (3.5-5.5)
== END 2020-05-01 22:36 | disposition home or self-care (01) ==
LOC: ER 19:24
PROVIDERS: Emergency Medicine
DX: K40.90 Unilateral inguinal hernia, without obstruction or gangrene, not specified as recurrent (principal); I13.0 Hypertensive heart and chronic kidney disease with heart failure and stage 1 through stage 4 chronic kidney disease, or unspecified chronic kidney disease; E11.22 Type 2 diabetes mellitus with diabetic chronic kidney disease; I50.22 Chronic systolic (congestive) heart failure; N18.30 Chronic kidney disease, stage 3 unspecified; E78.5 Hyperlipidemia, unspecified; I48.91 Unspecified atrial fibrillation; I25.10 Atherosclerotic heart disease of native coronary artery without angina pectoris; F32.9 Major depressive disorder, single episode, unspecified; F17.210 Nicotine dependence, cigarettes, uncomplicated; Z79.4 Long term (current) use of insulin; Z79.01 Long term (current) use of anticoagulants; Z79.899 Other long term (current) drug therapy
CPT/HCPCS: 36415; 76857; 80053; 81003; 85025; 99284-25

== ENCOUNTER 2020-05-02 00:44 | Day surgery (SDC) | payer OTHER ==
[~2020-05-02 00:44] MED LIST changes: +METO5 PO; +SPIR25 PO
== END 2020-05-02 11:50 | disposition home or self-care (01) ==
LOC: ATC 00:44 → US 00:44 → ATC 11:50 → US 05-04 12:00
DX: R18.8 Other ascites (principal); I13.0 Hypertensive heart and chronic kidney disease with heart failure and stage 1 through stage 4 chronic kidney disease, or unspecified chronic kidney disease; E11.22 Type 2 diabetes mellitus with diabetic chronic kidney disease; N18.30 Chronic kidney disease, stage 3 unspecified; I50.22 Chronic systolic (congestive) heart failure; I48.91 Unspecified atrial fibrillation; I42.9 Cardiomyopathy, unspecified; F17.210 Nicotine dependence, cigarettes, uncomplicated; G47.33 Obstructive sleep apnea (adult) (pediatric); Z79.4 Long term (current) use of insulin; Z79.899 Other long term (current) drug therapy; Z51.5 Encounter for palliative care
CPT/HCPCS: 49083; 96365; P9046

== ENCOUNTER 2020-05-09 12:58 | Day surgery (SDC) | payer OTHER | END 2020-05-09 23:20 | disposition home or self-care (01) | LOC: US 12:58 | DX: R18.8 Other ascites (principal); I50.20 Unspecified systolic (congestive) heart failure; E11.9 Type 2 diabetes mellitus without complications; G47.33 Obstructive sleep apnea (adult) (pediatric); I25.2 Old myocardial infarction; F17.210 Nicotine dependence, cigarettes, uncomplicated; I48.91 Unspecified atrial fibrillation; Z51.5 Encounter for palliative care; Z79.01 Long term (current) use of anticoagulants; Z79.4 Long term (current) use of insulin; Z79.899 Other long term (current) drug therapy; Z86.73 Personal history of transient ischemic attack (TIA), and cerebral infarction without residual deficits | CPT/HCPCS: 76705 ==

== ENCOUNTER 2020-05-23 00:09 | Day surgery (SDC) | payer OTHER | END 2020-05-23 22:57 | disposition home or self-care (01) | LOC: US 00:09 | DX: R18.8 Other ascites (principal); Z79.899 Other long term (current) drug therapy ==

== ENCOUNTER 2020-06-23 00:04 | Day surgery (SDC) | payer OTHER | END 2020-06-23 23:35 | disposition home or self-care (01) | LOC: US 00:04 | DX: R18.8 Other ascites (principal); Z79.4 Long term (current) use of insulin; Z79.899 Other long term (current) drug therapy ==

== ENCOUNTER 2020-07-04 00:13 | Day surgery (SDC) | payer OTHER | END 2020-07-04 22:48 | disposition home or self-care (01) | LOC: ATC 00:13 → US 09:00 → ATC 10:00 | DX: R18.8 Other ascites (principal); E11.22 Type 2 diabetes mellitus with diabetic chronic kidney disease; N18.30 Chronic kidney disease, stage 3 unspecified; I50.22 Chronic systolic (congestive) heart failure; I48.91 Unspecified atrial fibrillation; I42.9 Cardiomyopathy, unspecified; F17.210 Nicotine dependence, cigarettes, uncomplicated; G47.33 Obstructive sleep apnea (adult) (pediatric); Z79.4 Long term (current) use of insulin; Z79.899 Other long term (current) drug therapy; Z79.01 Long term (current) use of anticoagulants ==

== ENCOUNTER 2020-07-14 00:15 | Day surgery (SDC) | payer OTHER | END 2020-07-14 23:34 | disposition home or self-care (01) | LOC: US 00:15 → ATC 10:00 → US 10:00 | DX: R18.8 Other ascites (principal); I50.22 Chronic systolic (congestive) heart failure; N18.30 Chronic kidney disease, stage 3 unspecified; E11.22 Type 2 diabetes mellitus with diabetic chronic kidney disease; I48.91 Unspecified atrial fibrillation; F17.210 Nicotine dependence, cigarettes, uncomplicated ==

== ENCOUNTER 2020-07-25 00:26 | Day surgery (SDC) | payer OTHER | END 2020-07-25 23:40 | disposition home or self-care (01) | LOC: ATC 00:26 → US 09:00 → ATC 10:00 | DX: R18.8 Other ascites (principal); I50.22 Chronic systolic (congestive) heart failure; N18.30 Chronic kidney disease, stage 3 unspecified; E11.22 Type 2 diabetes mellitus with diabetic chronic kidney disease; I48.91 Unspecified atrial fibrillation; F17.210 Nicotine dependence, cigarettes, uncomplicated ==

== ENCOUNTER 2020-08-04 00:07 | Day surgery (SDC) | payer OTHER | END 2020-08-04 23:52 | disposition home or self-care (01) | LOC: ATC 00:07 → US 09:00 → ATC 10:00 | DX: R18.8 Other ascites (principal); I50.22 Chronic systolic (congestive) heart failure; N18.30 Chronic kidney disease, stage 3 unspecified; E11.22 Type 2 diabetes mellitus with diabetic chronic kidney disease; I48.91 Unspecified atrial fibrillation; F17.210 Nicotine dependence, cigarettes, uncomplicated ==

== ENCOUNTER 2020-08-29 16:45 | Inpatient (IN) | payer OTHER ==
[~2020-08-29] VITALS: Ht 190.5 cm; Wt 86.1 kg
[2020-08-29 17:44] LABS: BASOPHILS ABSOLUTE AUTO 0.04 K/mm3 (0.00-0.23); BASOPHILS PERCENT AUTO 0 % (0-2); EOSINOPHILS ABSOLUTE AUTO 0.08 K/mm3 (0.00-0.68); EOSINOPHILS PERCENT AUTO 1 % (0-6); Hemoglobin 15.2 g/dL (13.5-17.5); IMMATURE GRAN ABSOLUTE AUTO 0.04 K/mm3 (0.00-0.10); IMMATURE GRAN PERCENT AUTO 0 % (0-1); LYMPHOCYTES ABSOLUTE AUTO 2.62 K/mm3 (0.84-5.20); LYMPHOCYTES PERCENT AUTO 23 % (21-46); MONOCYTES ABSOLUTE AUTO 1.24 K/mm3 (0.16-1.47); MONOCYTES PERCENT AUTO 11 % (4-13); Mean Corpuscular HGB 31.3 pg (26.0-34.0); Mean Corpuscular HGB Conc 32.3 g/dL (31.5-36.5); Mean Corpuscular Volume 97 fL (80-100); Mean Platelet Volume 11.3 fL (9.1-12.4); NEUTROPHILS ABSOLUTE AUTO 7.24 K/mm3 (1.96-9.15); NEUTROPHILS PERCENT AUTO 64 % (41-73); Platelet Count 197 K/mm3 (150-400); RDW Coefficient Variation 14.2 % (11.7-14.2); RDW Standard Deviation 50.7 fL (35.1-46.3); Red Blood Cell Count 4.85 M/mm3 (4.30-5.90); White Blood Cell Count 11.26 K/mm3 (4.00-11.30)
[2020-08-29 18:08] LABS: Albumin, Blood 3.3 g/dL (3.4-5.0); Albumin/Globulin Ratio 0.8 (0.8-1.8); Bun/Creatinine Ratio 24.5 (12.0-20.0); Calcium, Blood 8.8 mg/dL (8.5-10.1); Creatinine, Blood 1.88 mg/dL (0.60-1.20); Globulin, Blood 4.2 g/dL (2.2-4.0); Total Protein, Blood 7.5 g/dL (6.4-8.2)
[2020-08-29 18:17] LABS: International Normalized Ratio 1.33
[2020-08-29 18:32] LABS: Source, Urine Clean Catch
[2020-08-29 18:37] LABS: Appearance, Urine Clear (Clear); Bilirubin, Urine Neg (Neg); Blood, Urine Neg (Neg); Color, Urine Yellow (P-Yellow); Glucose Qualitative, Urine 3+ (Neg); Ketones, Urine Neg (Neg); Leukocyte Esterase, Urine Neg (Neg); Nitrite, Urine Neg (Neg); Protein, Urine Neg (Neg); Specific Gravity, Urine 1.005 (1.003-1.022); Urobilinogen, Urine NORM (Normal); pH, Urine 6.5 (5.0-8.0)
[2020-08-29 18:57] LABS: U Amphetamine Screen Not Detected; U Barbituate Screen Not Detected; U Benzodiazapine Screen Not Detected; U Buprenorphine Screen Not Detected; U Cannabinoids Screen Not Detected; U Cocaine Screen Not Detected; U Methadone Screen Not Detected; U Methamphetamine Screen DETECTED; U Opiates Screen Not Detected; U Oxycodone Screen Not Detected; U Phencyclidine Screen Not Detected; U Propoxyphene Screen Not Detected
[2020-08-30 03:55] LABS: BASOPHILS ABSOLUTE AUTO 0.04 K/mm3 (0.00-0.23); BASOPHILS PERCENT AUTO 0 % (0-2); EOSINOPHILS ABSOLUTE AUTO 0.12 K/mm3 (0.00-0.68); EOSINOPHILS PERCENT AUTO 1 % (0-6); Hematocrit 43.8 % (37.0-53.0); Hemoglobin 14.1 g/dL (13.5-17.5); IMMATURE GRAN ABSOLUTE AUTO 0.04 K/mm3 (0.00-0.10); IMMATURE GRAN PERCENT AUTO 0 % (0-1); LYMPHOCYTES ABSOLUTE AUTO 3.11 K/mm3 (0.84-5.20); LYMPHOCYTES PERCENT AUTO 29 % (21-46); MONOCYTES ABSOLUTE AUTO 0.98 K/mm3 (0.16-1.47); MONOCYTES PERCENT AUTO 9 % (4-13); Mean Corpuscular HGB 30.9 pg (26.0-34.0); Mean Corpuscular HGB Conc 32.2 g/dL (31.5-36.5); Mean Corpuscular Volume 96 fL (80-100); Mean Platelet Volume 11.3 fL (9.1-12.4); NEUTROPHILS ABSOLUTE AUTO 6.59 K/mm3 (1.96-9.15); NEUTROPHILS PERCENT AUTO 61 % (41-73); Platelet Count 184 K/mm3 (150-400); RDW Standard Deviation 49.3 fL (35.1-46.3); Red Blood Cell Count 4.57 M/mm3 (4.30-5.90); White Blood Cell Count 10.88 K/mm3 (4.00-11.30)
[2020-08-30 04:13] LABS: Albumin, Blood 3.1 g/dL (3.4-5.0); Albumin/Globulin Ratio 0.8 (0.8-1.8); Bilirubin, Total 1.5 mg/dL (0.1-1.0); Bun/Creatinine Ratio 24.7 (12.0-20.0); Calcium, Blood 8.4 mg/dL (8.5-10.1); Creatinine, Blood 1.74 mg/dL (0.60-1.20); Globulin, Blood 3.8 g/dL (2.2-4.0); Potassium, Blood 3.1 mmol/L (3.5-5.5); Total Protein, Blood 6.9 g/dL (6.4-8.2)
--- NOTE | 2020-08-30 05:04 | NUR ---
SHIFT SUMMARY PT RESTED THROUGH NIGHT. PT ALERT. DOES NOT USE CALL LIGHT, AND IS IMPULSIVE. SATS >90% ON ROOM AIR. TELE AFIB 90'S-110'S - DIGOXIN AND METOPROLOL ORDERED. PT IS ABLE TO STAND UP AND AMBULATE STEADILY TO BATHROOM, BUT NEEDS ASSISTANCE AND FOR STAFF TO BE DIRECT WITH HIM. PT DID NOT CLEAN HIMSELF AFTER HAVING BOWEL MOVEMENT, AND HAD STOOL ALL OVER BOTTOM. PT ABLE TO UNERSTAND WHEN BEING SPOKEN TO, BUT IS HAVING DIFFICULTY HAVING APPROPRIATE RESPONSES IN RETURN. VOIDING TO BATHROOM, TWO BM'S. NO C/O PAIN. VSS. CALL LIGHT WITHIN REACH, BED ALARM ON AND BED IN LOWEST POSITION. WILL CONTINUE TO MONITOR.
--- NOTE | 2020-08-30 12:10 | NUR ---
Advance Directive (AD) Education attemted/ SPiritual care visit Conducted. Upon recieving an admit referral for AD education, I visit patient. I ask patient about interest in AD. Patient stares at me and has no reply. Patient answers yes to having good support and and yes to holding up ok and yes to prayer. I gladly provide prayer and a calming presence. I will continue to remain available to patient and family.
--- NOTE | 2020-08-30 16:56 | NUR ---
SHIFT SUMMARY NO ACUTE EVENTS THIS SHIFT, VSS. PATIENT IS ALERT, HOWEVER UNABLE TO APPROPRIATELY ANSWER QUESTIONS AT TIMES, APPEARS ATTENTIVE TO STAFF'S CONVERSATION. BED ALARM ON, PATIENT IS IMPULSIVE AT TIMES. PATIENT IS A STANDBY ASSIST TO THE BATHROOM FOR LINE MANAGEMENT. PATIENT WORKED WITH PT/OT/ST TODAY. SOME APPARENT EXPRESSIVE APHASIA. NO PHYSICAL DEFICITS NOTED.
[2020-08-30] MEDS ORDERED: Neurontin 100100 MG PO (17:24)
[2020-08-30] MEDS ORDERED: METO5A PO (17:27)
--- NOTE | 2020-08-30 19:20 | NUR ---
PT IS ALERT TO PERSON, FOLLOWS DIRECTION. PT HAS EXPRESSIVE APHASIA. PT IS IMPULSIVE, BED ALARM ON. REVIEWED CALL KRAUSE, AND BED ALARM BEING ON FOR SAFETY. PT AMBULATED TO BR, STEADY ON HIS FEET. PT DENIES ANY COMPLAINTS OF HEADACHE, CHEST PAIN, SOB, NAUSEA, NUMBNESS OR TINGLING. CALL LIGHT WITHIN REACH. BED IN LOW POSITION. KATHERINE.
--- NOTE | 2020-08-30 23:21 | NUR ---
RECEIVED UPDATE FROM JAYDE MOSES THAT SHE JUST SPOKE TO DR. DURAND - REPORT RECEIVED FROM DR. 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 I CONTACTED NATALIA GAXIOLA, UPDATED ON THE ABOVE INFORMATION, RELAYED PT IS CURRENTLY ON ASA, AND LOVENOX, WAS METH POSITIVE, PER PREVIOUS SHIFT. REPORT FROM PREVIOUS SHIFT RN, MARGARET - IS PT HASN'T BEEN TAKING HIS XARELTO FOR 1 MONTH. I RELAYED THIS INFORMATION TO NATALIA GAXIOLA. SHE REPORTED SHE WOULD TALK TO DR. LEE AND GET BACK TO ME REGARDING POTENTIAL ORDERS.
--- NOTE | 2020-08-30 23:28 | NUR ---
RECEIVED RETURN PHONE CALL FROM NATALIA GAXIOLA - NO ANTICOAGULATION, RISK FOR HEMORRHAGIC STROKE. PT HERE WITH NON-HEMORRHAGIC STROKE. SHE REQUESTED AM HOSPITALIST BE UPDATED IN AM REGARDING L VENT THROMBUS - NURSING ORDER PLACED AND WILL UPDATE AM SHIFT WITH THIS REQUEST.
[2020-08-31 03:57] LABS: Bun/Creatinine Ratio 26.1 (12.0-20.0); Calcium, Blood 8.2 mg/dL (8.5-10.1); Creatinine, Blood 1.42 mg/dL (0.60-1.20); Potassium, Blood 3.4 mmol/L (3.5-5.5)
--- NOTE | 2020-08-31 05:24 | NUR ---
SHIFT SUMMARY - NO ACUTE CHANGES THROUGHOUT THIS SHIFT. BED ALARM REMAINS ON, HOWEVER PT IS IMPULSIVE, AND GETS OOB BEFORE STAFF IS PRESENT. PT HAS BEEN EDUCATED ON USE OF CALL KRAUSE, HOWEVER PT DOESN'T DEMONSTRATE USE. PT IS STEADY ON HIS FEET, SBA TO BRP. PT DID FOLLOW INSTRUCTION X1 WITH USE OF URINAL. PT CONTINUES WITH EXPRESSIVE APHASIA. VSS. PT DENIED ANY COMPLAINTS OF PAIN, CHEST PAIN, OR DISCOMFORT THROUGHOUT THE NIGHT. PT TOLERATED PO FLUIDS AND CHEESE SNACK LAST NOC. FLUIDS AT BEDSIDE. CALL LIGHT WITHIN REACH. BED IN LOW POSITION.
--- NOTE | 2020-08-31 06:33 | NUR ---
I WILL REPORT OFF TO ONCOMING SHIFT TO CONTACT AM HOSPITALIST WITH ECHO RESULT OF LEFT VENT THROMBUS, WHICH WAS REPORTED TO NURSING STAFF BY DR. DURAND.
--- NOTE | 2020-08-31 17:49 | NUR ---
NO ACUTE EVENTS THIS SHIFT, VSS. PATIENT STILL UNABLE TO STATE RESPONSES TO ORIENTATION QUESTIONS INCLUDING PLACE AND SITUATION. ABLE TO AMBULATE INDEPENDENTLY IN ROOM, BED/CHAIR ALARM ARE ON DUE TO IMPULSIVITY. CBG COVERED PER EMAR. PATIENT IS ABLE TO EAT MEALS INDEPENDENTLY. GIRLFRIEND HANS IS AT BEDSIDE, SHE STATES THAT HE DOESN'T SEEM TO BE ABLE TO STATE WHO SHE IS, BUT SEEMS TO KNOW HER. DR. DURAND SAW PATIENT AT BEDSIDE, TO DISCUSS CARDIOLOGY RECS WITH HOSPITALIST.
--- NOTE | 2020-08-31 17:53 | NUR ---
REPORT GIVEN TO CARRIE LESTER ON MEDICAL.
--- NOTE | 2020-08-31 18:48 | NUR ---
ARRIVES FROM [facility] AT 1830. DOES NOT KNOW WHY HERE.GIRLFRIEND IN ROOM KNOWS YEAR. REVIEW WHY HE NEEDS TO USE CALL LIGHT. REPORT TO NIGHT RN
--- NOTE | 2020-09-01 04:04 | NUR ---
SHIFT SUMMARYASSUMED CARE OF PT AT 1900. PT IS A/OX2. PT IS IMPULSIZE AND WILL GET UP WITHOUT HELP TO BATHROOM. HEART SOUNDS IRREGULAR, TELE SHOWS AFIB, RATE BETWEEN 92-128. LUNG SOUNDS ARE VERY DIMINISHED. PT IS SBA TO BATHROOM. CALL LIGHT IN REACH, BED IN LOWEST POSTION.
[2020-09-01 05:05] LABS: Bun/Creatinine Ratio 21.5 (12.0-20.0); Calcium, Blood 8.2 mg/dL (8.5-10.1); Creatinine, Blood 1.49 mg/dL (0.60-1.20); Potassium, Blood 3.5 mmol/L (3.5-5.5)
--- NOTE | 2020-09-01 16:28 | NUR ---
SHIFT SUMMARY- PT A/O TO SELF ONLY. PT WITH EXPRESSIVE APHASIA, PT WILL SHAKE HEAD YES/NO BUT NOT ALWAYS APROPRIATELY. AT TIMES PT WILL ANSWER WITH SIMPLE WORDS. PT DOES NOT FOLLOW DIRECTION, IMPULSIVE AND DOES NOT CALL APROPRIATELY BUT WITH STEADY GAIT MOST OF THE TIME. LS CLEAR, ON RA. HEART IRREG, TELE AFIB 110'S. PT WITH GOOD APETITE. SIGNIFICANT OTHER IN TO SEE PT THIS EVENING, DR CLINE CALLED TO DISCUSS MRI RESULTS WITH HER. NO OTHER ACUTE CHANGES THIS SHIFT.
--- NOTE | 2020-09-02 04:41 | NUR ---
SHIFT SUMMARY ASSUMED CARE OF PT AT 1900. PT IS A/OX1. PT WILL ANSWER YES AND NO QUESTIONS BUT HAS HARD TIME SAYING WORDS. HEART SOUNDS IRREGULAR, TELE SHOWS AFIB BETWEEN 90-120, PT REACHED 140S WITH ACTITY AND WOULD BE SOB WHEN RETURNING TO BED AFTER VOIDING. LUNG SOUNDS CLEAR. PT IS SBA TO BATHROOM. NO ACUTE EVENTS. CALL LIGHT IN REACH, BED IN LOWEST POSTION.
[2020-09-02 06:55] LABS: Anion Gap 7 mmol/L (6-16); Blood Urea Nitrogen 32 mg/dL (8-24); CO2, Blood 26 mmol/L (21-32); Calcium, Blood 8.2 mg/dL (8.5-10.1); Chloride, Blood 109 mmol/L (98-108); Creatinine, Blood 1.23 mg/dL (0.60-1.20); Glomerular Filtration Rate >60 (60-); Glucose, Blood 126 mg/dL (70-99); Potassium, Blood 3.5 mmol/L (3.5-5.5); Sodium, Blood 142 mmol/L (136-145)
--- NOTE | 2020-09-02 14:29 | NUR ---
CALLED DR NARVAEZ AND INFORMED HIM OF APNEIC PAUSES OF ABOUT 30 SECONDS, VSS, SATS STABLE ON RA. DR NARVAEZ DECLINES TO DO VBG AT THIS TIME, BUT HE WILL COME AND LOOK AT HIM
--- NOTE | 2020-09-02 18:38 | NUR ---
SHIFT SUMMARY DARREL WAS STARTED ON A HEPARIN DRIP. LESS VERBAL TODAY PER S.O. MOSTLY SAYS 'YES' OR 'NO' OR OCCASIONALLY SHORT SENTENCES. SEEMS DISORIENTED. CONTINUALLY SETS OFF BED ALARM TO GO TO BR, SBA TO BR. TELE SHOWED AFIB. CT DONE AFTER HEP DRIP STARTED WHICH SHOWED MINOR INCREASE OF PETICH BLEEDING, DR YUN HUNTLEYORMED. APNEIC BREATHING , DR NARVAEZ AWARE. DENIED PAIN. TOOK MEDS PRESCRIBED. CALL LIGHT IN REACH, [facility]
--- NOTE | 2020-09-02 22:24 | NUR ---
1914 REPORT RECEIVED FROM TAYLER WATSON AND CARE ASSUMED.
--- NOTE | 2020-09-03 03:52 | NUR ---
SHIFT SUMMARY: 60 MALE RESTED COMFORTABLY IN BED; PT HAS EXPRESSIVE APHASIA AT TIMES; PT ABLE TO MOVE ALL EXTREMITIES AND AMBULATE BATHROOM AND BACK WITH GAIT SLIGHTLY UNSTEADY; ABLE TO FOLLOW SIMPLE VERBAL COMMANDS AND SWALLOW FLUIDS WITHOUT ISSUE; TELEMETRY REFLECTS A/FIB WITH HEPARIN GTT INFUSING AT 18ML/HR WITH NEXT PTT DRAW AT 0800; PT STILL TENDS TO BE IMPULSIVE AT TIMES WHEN UTILIZING RESTROOM WITH BED ALARM SET OFF; PT BED ALARM APPLIED, BED LOW POSITION WITH CALL LIGHT AT SIDE.
[2020-09-03 08:30] LABS: Bun/Creatinine Ratio 21.8 (12.0-20.0); Calcium, Blood 8.2 mg/dL (8.5-10.1); Creatinine, Blood 1.56 mg/dL (0.60-1.20); Potassium, Blood 3.9 mmol/L (3.5-5.5)
[2020-09-03 16:23] LABS: Platelet Count 165 K/mm3 (150-400)
--- NOTE | 2020-09-03 18:38 | NUR ---
SHIFT SUMMARY DARREL REMAINED ON HEPARIN DRIP. TOOK A SHOWER, S.O. VISITED. NEURO CHECKS UNCHANGED, STILL NO MOTOR DEFICIT EXCEPT IMPAIRED BALANCE. APHASIC AND CONFUSED. CT SHOWED NO INCREASED BLEEDING IN BREAIN. SOB ON EXERTION. TELE DC'D PER DR CANADA, HE HAS CONTINUOUSLY BEEN AFIB. CALL LIGHT IN REACH, SCHEDULED TOILETING PERFORMED, [facility]
--- NOTE | 2020-09-04 04:42 | NUR ---
SHIFT SUMMARY PATIENT HAD NO ACUTE CHANGES OBSERVED. AXOX 2 AND ONE ASSIST TO BSC. SOB W/EXERTION. MOVES ALL EXTREMITIES WELL. PIV REMAINS INTACT. HEPARIN INFUSING AT 34.4 mL/HR MANAGE BY PHARMACY. CBG 214. VSS/AFEBRILE. DENIES PAIN AND N/V. CALL LIGHT IN REACH. BED IN LOWEST POSITION. WILL CONTINUE TO MONITOR UNTIL DAY SHIFT NURSE ASSUMES CARE.
[2020-09-04 17:27] LABS: International Normalized Ratio 1.27; Prothrombin Time Results 13.4 Sec (9.7-11.5)
--- NOTE | 2020-09-04 17:50 | NUR ---
PT AOX2 WITH NO ACUTE CHANGES TODAY. PT IS STILL VERY IMPULSIVE AND DOES NOT USE CALL LIGHT. PT WILL MANY TIMES NOT TALK WHEN TALKED TO AND THEN WILL TALK FINE. PT DENIES ANY PAIN. CALL LIGHT IS WITHIN REACH AND BED ALARM IN PLACE. WILL CONTINUE TO MONITOR.
--- NOTE | 2020-09-05 04:00 | NUR ---
SHIFT SUMMARY PATIENT HAD NO ACUTE CHANGES OBSERVED. AXOX 2 AND SBA TO BR WITH UNSTEADY GAIT. MOVES ALL EXTREMITIES. PIV REMAINS INTACT. IV HEPARIN INFUSING AT 34.4 mL/HR MANAGE BY PHARMACY. NO RATE CHANGE. VSS/AFEBRILE. DENIES PAIN, SOB, AND N/V. MOSTLY NON-VERBAL WHEN ASKED QUESTIONS OR LIMITED ANSWERS. IMPULSIVE WITH BED ALARM ACTIVATED X FOUR. CBG 149. CALL LIGHT IN REACH. BED IN LOWEST POSITION. WILL CONTINUE TO MONITOR UNTIL DAY SHIFT NURSE ASSUMES CARE.
[2020-09-05 10:13] LABS: Mean Platelet Volume 12.4 fL (9.1-12.4); Platelet Count 156 K/mm3 (150-400)
[2020-09-05 10:34] LABS: International Normalized Ratio 1.32; Prothrombin Time Results 13.9 Sec (9.7-11.5)
--- NOTE | 2020-09-05 18:37 | NUR ---
SHIFT SUMMARY DARREL CONTINUED TO HAVE NO MUSCULAR DEFICITS BUT HAS SEVERE APHASIA MAKING IT DIFFICULT TO DETERMINE HIS MENTATION. UNABLE TO INTAKE INFORMATION AND MAKE A DECISION. ASKED IF HE IS HAVING PAIN, AND HE WILL SAY 'NO', DESPITE HAVING JUST DISCUSSED HIS PAIN. R GROIN TENDER TO THE TOUCH, PER GF HE WAS GROANING IN PAIN IN THE SHOWER. HEP DRIP REMAINED STABLE THIS SHIFT. CONTINENT IN BR, SET OFF BED ALARM SEVERAL TIMES. HAD BM. CALL LIGHT IN REACH, [facility]
--- NOTE | 2020-09-06 04:35 | NUR ---
SHIFT SUMMARY- PT. A&OX1 WITH EXPRESSIVE APHASIA. DOES NOT ANSWER QUESTIONS APPROPRIATELY AND STATES ONLY ONE WORD ANSWERS. PT. IMPULSIVE T/O THE NIGHT, MINIMAL WEAKNESS. SBA TO BATHROOM. ON HEPARIN GTT, NO CHANGES TO RATE THIS SHIFT. HAD NO C/O PAIN OR DISCOMFORT DURING THE NIGHT, SLEPT ON/OFF T/O THE NIGHT, NO APPARENT DISTRESS NOTED. VSS. CALL LIGHT WITHIN REACH, SIDE RAILS UPX2, AND BED ALARM ON FOR SAFETY. WILL CONT TO MONITOR.
[2020-09-06 04:54] LABS: International Normalized Ratio 1.3; Prothrombin Time Results 13.7 Sec (9.7-11.5)
--- NOTE | 2020-09-06 17:31 | NUR ---
SUMMARY PT RESTING QUIETLY IN BED, WAKES EASILY, STILL HAVING APHASIA, COOPERATIVE WITH CARE, WORKED WITH PT/OT/ST, UP WALKING IN THE HALLS, PT DID WANDER AWAY AT ONE POINT UNSUPERVISED, FOUND AND BROUGHT BACK BY THE COMPLAINT EVALUATION OFFICER, INFORMED PT TO NOT LEAVE THE FLOOR DUE TO IV INFUSION, VSS, WILL CONT TO MONITOR
--- NOTE | 2020-09-07 04:32 | NUR ---
SUMMARY NO ACUTE CHANGES NOTED. PT HAS SLEPT T/O SHIFT. PT DENIES SOB OR CX PAIN. CALL LIGHT IN REACH.
[2020-09-07 08:30] LABS: Bun/Creatinine Ratio 19.9 (12.0-20.0); Calcium, Blood 7.9 mg/dL (8.5-10.1); Creatinine, Blood 1.41 mg/dL (0.60-1.20)
[2020-09-07 08:40] LABS: International Normalized Ratio 1.34; Prothrombin Time Results 14.1 Sec (9.7-11.5)
--- NOTE | 2020-09-07 16:50 | NUR ---
PATIENT IS ALERT TO SELF AND FOLLOWING DIRECTIONS. WHEN ASKED WHERE HE IS THIS MORNING HE STATED "AT AN [facility]", HE COULD NOT GIVE HIS DATE OR THE DATE AND TIME. PATIENT PARTICIPATED IN PT,OT AND SPEECH THEREAPY. HE IS INDEPENDENT IN HIS ROOM. HEPARIN DRIP IS RUNNING. PLAN IS TO DC HOME WITH HOME HEALTH WHEN INR IS THERAPUETIC. NO NEW COMPLAINTS TODAY. WILL CONTINUE TO MONITOR
[2020-09-08 05:05] LABS: Hemoglobin 15.3 g/dL (13.5-17.5); Mean Corpuscular HGB Conc 32.6 g/dL (31.5-36.5); Mean Corpuscular Volume 95 fL (80-100); Mean Platelet Volume 12.5 fL (9.1-12.4); Platelet Count 177 K/mm3 (150-400); RDW Coefficient Variation 13.5 % (11.7-14.2); RDW Standard Deviation 47.3 fL (35.1-46.3); Red Blood Cell Count 4.93 M/mm3 (4.30-5.90); White Blood Cell Count 11.26 K/mm3 (4.00-11.30)
[2020-09-08 05:22] LABS: International Normalized Ratio 1.49; Prothrombin Time Results 15.6 Sec (9.7-11.5)
[2020-09-08 05:28] LABS: Anion Gap 6 mmol/L (6-16); Blood Urea Nitrogen 30 mg/dL (8-24); Bun/Creatinine Ratio 21.1 (12.0-20.0); CO2, Blood 25 mmol/L (21-32); Calcium, Blood 8.4 mg/dL (8.5-10.1); Chloride, Blood 109 mmol/L (98-108); Cholesterol 65 mg/dL (50-200); Creatinine, Blood 1.42 mg/dL (0.60-1.20); Glomerular Filtration Rate 54 (60-); Glucose, Blood 85 mg/dL (70-99); HDL Cholesterol 32 mg/dL (>39); LDL/HDL RATIO 0.8; Low Density Lipoprotein Chol 26 mg/dL (0-110); Phosphorus, Blood 3.6 mg/dL (2.5-4.9); Potassium, Blood 4.2 mmol/L (3.5-5.5); Sodium, Blood 140 mmol/L (136-145); Triglycerides 36 mg/dL (30-160); Very Low Density Lipoprot Chol 7 mg/dL (6-32)
--- NOTE | 2020-09-08 05:45 | NUR ---
SUMMARY NO NEW ISSUES NOTED. PT REMAINS CONFUSED BUT FOLLOWS DIRECTIONS. PT CONTINUES TO BE INDEPENDANT IN ROOM. PT HEPARIN IS RUNNING. PT CURRENTLY SLEEPING IN NO DISTRESS. CALL LIGHT IN REACH.
--- NOTE | 2020-09-08 18:17 | NUR ---
PATIENT IS ALERT. HE IS ORIENTED TO HIS .HE FOLLOWS DIRECTIONS. THE PATIENT IS RELUCTANT TO WORK WITH THERAPIES. HEPARIN DRIP IS INFUSING. BOWEL CARE ORDERS PLACED TODAY. PATIENT C/O ABDOMINAL PAIN WHILE WALKING WITH SPEECH THERAPY, DR. PECK NOTIFIED. WILL CONTINUE TO MONITOR.
[2020-09-09 01:05] LABS: Hematocrit 46.7 % (37.0-53.0); Hemoglobin 15.2 g/dL (13.5-17.5)
[2020-09-09 01:29] LABS: International Normalized Ratio 1.83; Prothrombin Time Results 18.9 Sec (9.7-11.5)
--- NOTE | 2020-09-09 04:25 | NUR ---
ALEMITE OPERATOR SUMMARY PT IS ALERT. HAS EXPRESSIVE APHASIA, ABLE TO ANSWER YES OR NO QUESTIONS. FOR EXAMPLED WHEN I ASKED IF PT PREFERED TO HAVE CHOCOLATE OR VANILLA PUDDING, PT RESPONDED WITH "YES". PT IS COOPERATIVE. DENIES PAIN, SOB, NAUSEA. CONTINUES TO BE ON HEPARIN DRIP. INDEPENDENT IN ROOM. NO FACIAL DROOPING OR WEAKNESS IN STRENGTH. SLEPT ON AND OFF TONIGHT. CALL LIGHT WITHIN REACH.
--- NOTE | 2020-09-09 18:31 | NUR ---
SHIFT SUMMARY. ALERT, DIFFICULT TO ASSESS ORIENTATION PT EXPRESSIVE APHASIA, PT APPEAR TO COMPREHEND WHAT IS BEING SAID TO HIM HE ANSWERS APPROPRIATLY WITH Y/N ANSWERS. PT DENIES PAIN, SOB, N/V. CONTINUES WITH HEPARIN DRIP. SIGNIFICANT OTHER IN TO VISIT THIS EVENING. NO OTHER CHANGES OR CONCERNS.
[2020-09-10 01:12] LABS: Hematocrit 46.1 % (37.0-53.0); Mean Corpuscular HGB 31.3 pg (26.0-34.0); Mean Corpuscular HGB Conc 32.5 g/dL (31.5-36.5); Mean Corpuscular Volume 96 fL (80-100); Mean Platelet Volume 12.2 fL (9.1-12.4); Platelet Count 167 K/mm3 (150-400); RDW Coefficient Variation 13.4 % (11.7-14.2); Red Blood Cell Count 4.79 M/mm3 (4.30-5.90); White Blood Cell Count 10.86 K/mm3 (4.00-11.30)
[2020-09-10 01:28] LABS: Prothrombin Time Results 30.2 Sec (9.7-11.5)
--- NOTE | 2020-09-10 04:05 | NUR ---
ENGINEERING SUPPLIES SALES SUMMARY A/OX3, FLAT AFFECT WITH EXPRESSIVE APASHIA NOTED. ABLE TO ANSWER YES/NO QUESTIONS. INDEPENDENT IN ROOM. HEPARIN DRIP MANAGED PER PHARMACY. DENIES PAIN OR SOB. VSS, NO ACUTE CHANGES AT THIS TIME. BED IN LOWEST POSITION WITH CALL LIGHT IN REACH. WILL CONTINUE TO MONITOR AND REPORT TO ONCOMING RN.
--- NOTE | 2020-09-10 17:47 | NUR ---
PATIENT IS ALERT. HE IS ABLE TO FOLLOW SIMPLE DIRECTIONS. HIS AFFECT IS FLAT. THE PATIENT HAD A BM TODAY. NO NEW COMPLAINTS. THE HEPARIN DRIP WAS DISCONTINUED. HIS INR WAS 3.0 THIS MORNING. PATIENT IS INDEPENDENT IN HIS ROOM. WILL CONTINUE TO MONITOR
--- NOTE | 2020-09-11 03:43 | NUR ---
PARA MACHINE OPERATOR SUMMARY A/OX3, FLAT AFFECT. COOPERATIVE WITH CARE. PT HYPOTENSIVE, BP MEDS HELD. DENIES PAIN OR SOB. NO ACUTE CHANGES AT THIS TIME. BED IN LOWEST POSITION WITH CALL LIGHT IN REACH. WILL CONTINUE TO MONITOR AND REPORT TO ONCOMING RN.
[2020-09-11 05:06] LABS: International Normalized Ratio 3.54; Prothrombin Time Results 35.3 Sec (9.7-11.5)
[2020-09-11] MEDS ORDERED: WARF4 PO (17:23)
--- NOTE | 2020-09-11 17:54 | NUR ---
PATIENT DISCHARGED AT 1745. THE PATIENT WAS THREATENING TO LEAVE WITH HIS GIRLFRIEND AGAINST MEDICAL ADVICE. THIS RN TOLD THE PATIENT THAT SHE WOULD CALL DR. CANADA TO HAVE HIM COME UP TO SPEAK WITH HIM. DR. CANADA EXPLAINED TO THE PATIENT THE RISKS OF LEAVING AND THE PATIENT WAS ADAMANT THAT HE WAS GOING TO LEAVE TODAY REGARDLESS OF THE RISKS. DR. CANADA DISCHARGED THE PATIENT. THE PATIENT AND HIS GIRLFRIEND WENT OVER THE DISCHARGE PAPERWORK WITH THE RN. THE PATIENT WAS PUSHED IN A WHEELCHAIR OFF MEDICAL FLOOR BY HIS GIRLFRIEND, HANS.
== END 2020-09-11 17:44 | disposition home health service (06) | DRG 65 ==
LOC: ER 16:45 → PCU 16:46 → MEDS 08-30 12:14 → PCU 08-30 12:14 → MEDS 08-31 18:23
PROVIDERS: Emergency Medicine; Family Medicine; Internal Medicine; Pharmacist; Physician Assistant; ADMIT Internal Medicine
DX: I63.9 Cerebral infarction, unspecified (principal); G93.49 Other encephalopathy; I50.22 Chronic systolic (congestive) heart failure; I42.8 Other cardiomyopathies; I48.11 Longstanding persistent atrial fibrillation; Z91.14 Patient's other noncompliance with medication regimen; I48.91 Unspecified atrial fibrillation; E11.65 Type 2 diabetes mellitus with hyperglycemia; Z79.899 Other long term (current) drug therapy; F17.210 Nicotine dependence, cigarettes, uncomplicated; E11.22 Type 2 diabetes mellitus with diabetic chronic kidney disease; Z79.4 Long term (current) use of insulin; I25.10 Atherosclerotic heart disease of native coronary artery without angina pectoris; G47.33 Obstructive sleep apnea (adult) (pediatric); Z86.73 Personal history of transient ischemic attack (TIA), and cerebral infarction without residual deficits; B19.20 Unspecified viral hepatitis C without hepatic coma; I25.2 Old myocardial infarction; F32.9 Major depressive disorder, single episode, unspecified; Z98.890 Other specified postprocedural states; F15.10 Other stimulant abuse, uncomplicated; N18.32 Chronic kidney disease, stage 3b; E87.6 Hypokalemia; I51.3 Intracardiac thrombosis, not elsewhere classified
CPT/HCPCS: 36415; 36416; 70450; 70551; 71046; 80048; 80053; 80061; 80069; 81003; 82140; 82947; 83036; 83880; 84484; 85014; 85018; 85025; 85027; 85049; 85610; 85730; 92507; 92523; 93005; 93010; 93306; 93880; 96361; 96372; 96374; 96376; 97110; 97116; 97129; 97130; 97162; 97166; 97530; 97535; 99285-25; A9270; G0378; G0480; J1160; J1644; J1650; J2060; J3480; J7030; J7050

== ENCOUNTER 2021-04-29 10:59 | Emergency (ER) | payer OTHER ==
[~2021-04-29] VITALS: Ht 185.4 cm; Wt 95.2 kg
[~2021-04-29 10:59] MED LIST changes: +METO5A PO; +Neurontin 100100 MG PO; +WARF4 PO
[2021-04-29 12:53] LABS: BASOPHILS ABSOLUTE AUTO 0.03 K/mm3 (0.00-0.23); BASOPHILS PERCENT AUTO 0 % (0-2); EOSINOPHILS ABSOLUTE AUTO 0.22 K/mm3 (0.00-0.68); EOSINOPHILS PERCENT AUTO 2 % (0-6); Hematocrit 41.3 % (37.0-53.0); Hemoglobin 13.7 g/dL (13.5-17.5); IMMATURE GRAN ABSOLUTE AUTO 0.02 K/mm3 (0.00-0.10); IMMATURE GRAN PERCENT AUTO 0 % (0-1); LYMPHOCYTES ABSOLUTE AUTO 2.72 K/mm3 (0.84-5.20); LYMPHOCYTES PERCENT AUTO 27 % (21-46); MONOCYTES ABSOLUTE AUTO 0.61 K/mm3 (0.16-1.47); MONOCYTES PERCENT AUTO 6 % (4-13); Mean Corpuscular HGB 30.8 pg (26.0-34.0); Mean Corpuscular HGB Conc 33.2 g/dL (31.5-36.5); Mean Corpuscular Volume 93 fL (80-100); Mean Platelet Volume 12.3 fL (9.1-12.4); NEUTROPHILS ABSOLUTE AUTO 6.32 K/mm3 (1.96-9.15); NEUTROPHILS PERCENT AUTO 64 % (41-73); Platelet Count 180 K/mm3 (150-400); RDW Coefficient Variation 13.7 % (11.7-14.2); RDW Standard Deviation 46.5 fL (35.1-46.3); Red Blood Cell Count 4.45 M/mm3 (4.30-5.90); White Blood Cell Count 9.92 K/mm3 (4.00-11.30)
[2021-04-29 12:55] LABS: Bun/Creatinine Ratio 15.7 (12.0-20.0); Creatinine, Blood 1.27 mg/dL (0.60-1.20); Potassium, Blood 4.4 mmol/L (3.5-5.5)
[2021-04-29 13:20] LABS: International Normalized Ratio 1.5; Prothrombin Time Results 15.3 Sec (9.7-11.5)
== END 2021-04-29 15:41 | disposition home or self-care (01) ==
LOC: ER 10:59
PROVIDERS: Physician Assistant
DX: U07.1 COVID-19 (principal); E11.65 Type 2 diabetes mellitus with hyperglycemia; I13.0 Hypertensive heart and chronic kidney disease with heart failure and stage 1 through stage 4 chronic kidney disease, or unspecified chronic kidney disease; E11.22 Type 2 diabetes mellitus with diabetic chronic kidney disease; N18.30 Chronic kidney disease, stage 3 unspecified; I50.22 Chronic systolic (congestive) heart failure; E78.5 Hyperlipidemia, unspecified; G47.33 Obstructive sleep apnea (adult) (pediatric); F17.210 Nicotine dependence, cigarettes, uncomplicated; Z79.4 Long term (current) use of insulin; Z79.899 Other long term (current) drug therapy; Z79.01 Long term (current) use of anticoagulants
CPT/HCPCS: 36415; 80048; 85025; 85610; 86140; 93926; 96374; 99284-25; J1885; J7030

== ENCOUNTER 2021-05-16 21:21 | Inpatient (IN) | payer OTHER ==
[~2021-05-16] VITALS: Ht 185.4 cm; Wt 85.6 kg
[~2021-05-16 21:21] MED LIST changes: -BUME1 PO; +BUME2 PO; +GABA300 PO; -Neurontin 100100 MG PO
[2021-05-16 22:02] LABS: BASOPHILS ABSOLUTE AUTO 0.05 K/mm3 (0.00-0.23); BASOPHILS PERCENT AUTO 1 % (0-2); EOSINOPHILS ABSOLUTE AUTO 0.07 K/mm3 (0.00-0.68); EOSINOPHILS PERCENT AUTO 1 % (0-6); Hematocrit 42.5 % (37.0-53.0); Hemoglobin 14.1 g/dL (13.5-17.5); IMMATURE GRAN ABSOLUTE AUTO 0.02 K/mm3 (0.00-0.10); IMMATURE GRAN PERCENT AUTO 0 % (0-1); LYMPHOCYTES ABSOLUTE AUTO 2.71 K/mm3 (0.84-5.20); LYMPHOCYTES PERCENT AUTO 27 % (21-46); MONOCYTES ABSOLUTE AUTO 1.06 K/mm3 (0.16-1.47); MONOCYTES PERCENT AUTO 11 % (4-13); Mean Corpuscular HGB 29.6 pg (26.0-34.0); Mean Corpuscular HGB Conc 33.2 g/dL (31.5-36.5); Mean Corpuscular Volume 89 fL (80-100); Mean Platelet Volume 12.3 fL (9.1-12.4); NEUTROPHILS ABSOLUTE AUTO 6.16 K/mm3 (1.96-9.15); NEUTROPHILS PERCENT AUTO 61 % (41-73); Platelet Count 162 K/mm3 (150-400); RDW Coefficient Variation 15.1 % (11.7-14.2); RDW Standard Deviation 49.4 fL (35.1-46.3); Red Blood Cell Count 4.76 M/mm3 (4.30-5.90); White Blood Cell Count 10.07 K/mm3 (4.00-11.30)
[2021-05-16 22:14] LABS: Alanine Aminotransfer (ALT/SGP 367 U/L (12-78); Albumin, Blood 2.1 g/dL (3.4-5.0); Albumin/Globulin Ratio 0.4 (0.8-1.8); Alk Phos 397 U/L (50-136); Anion Gap 12 mmol/L (6-16); Aspartate Aminotrans (AST/SGOT 103 U/L (12-37); Bilirubin, Total 3.3 mg/dL (0.1-1.0); Blood Urea Nitrogen 46 mg/dL (8-24); Bun/Creatinine Ratio 25.3 (12.0-20.0); CO2, Blood 26 mmol/L (21-32); Calcium, Blood 8.3 mg/dL (8.5-10.1); Chloride, Blood 95 mmol/L (98-108); Creatinine, Blood 1.82 mg/dL (0.60-1.20); Ethanol (Alcohol), Blood, Med <3 mg/dL; Globulin, Blood 5.1 g/dL (2.2-4.0); Glomerular Filtration Rate 38 (60-); Glucose, Blood 367 mg/dL (70-99); Potassium, Blood 3.5 mmol/L (3.5-5.5); Sodium, Blood 133 mmol/L (136-145); Total Protein, Blood 7.2 g/dL (6.4-8.2)
[2021-05-16 23:29] LABS: Influenza A, PCR NEGATIVE (NEGATIVE); Influenza B, PCR NEGATIVE (NEGATIVE); Resp Syncytial Virus, PCR NEGATIVE (NEGATIVE)
[2021-05-16 23:46] LABS: SARS-Cov-2 (COVID-19) PCR, MMC POSITIVE (NEGATIVE)
[2021-05-16 23:48] LABS: Source, Urine Clean Catch
[2021-05-17 00:43] LABS: Appearance, Urine Clear (Clear); Bilirubin, Urine Neg (Neg); Blood, Urine 2+ (Neg); Color, Urine Yellow (P-Yellow); Glucose Qualitative, Urine 4+ (Neg); Ketones, Urine Neg (Neg); Leukocyte Esterase, Urine Neg (Neg); Nitrite, Urine Neg (Neg); Protein, Urine 2+ (Neg); Specific Gravity, Urine 1.015 (1.003-1.022); Urobilinogen, Urine NORM (Normal)
[2021-05-17 01:22] LABS: Bacteria Few /hpf; Squamous Epithelial Cells Rare /hpf (Few)
[2021-05-17 01:27] LABS: U Amphetamine Screen DETECTED; U Barbituate Screen Not Detected; U Benzodiazapine Screen Not Detected; U Buprenorphine Screen Not Detected; U Cannabinoids Screen Not Detected; U Cocaine Screen Not Detected; U Methadone Screen Not Detected; U Methamphetamine Screen DETECTED; U Opiates Screen Not Detected; U Oxycodone Screen Not Detected; U Phencyclidine Screen Not Detected; U Propoxyphene Screen Not Detected
--- NOTE | 2021-05-17 02:57 | NUR ---
AT 0155 PATIENT ARRIVED TO ICU 5 VIA GURNEY FROM ED. PATIENT SLEEPING AWAKENS TO SLIGHT STIMULI, CONFUSED CONVERSATION, BUT FOLLOWING SIMPLE DIRECTIONS. HANDS AND FEET DUSKY WITH MOTTLING UP PAST KNEES. RIGHT LEG LARGER THAN LEFT. EARS ALSO DISCOLORED. DIFFICULTY OBTAINING BIOX READING DUE TO EARS ALSO WITH POOR PERFUSION. SANDOSTATIN AND PROTONIX DRIP INFUSING. BLACK OLD BLOOD T/O MOUTH AND LIPS. ORAL CARE DONE. HR 140'S TO 150'S AFIB. FFP STARTED. ORDER OBTAINED FOR CARDIZEM DRIP. AND TO START IV FLUIDS AFTER FFP X4 UNITS GIVEN. PATIENT HAS SEVER SLEEP APNEA. WHEN AWAKE VERY RESTLESS. VERBALIZED HAD METH "THE OTHER DAY"
--- NOTE | 2021-05-17 03:32 | NUR ---
DURING STRONG COUGH, PATIENT HAD BRIGHT RED SPOTS ON BEDDING FROM MOUTH.
[2021-05-17 05:37] LABS: Hematocrit 42.3 % (37.0-53.0); Hemoglobin 13.4 g/dL (13.5-17.5); Mean Corpuscular HGB 29.6 pg (26.0-34.0); Mean Corpuscular HGB Conc 31.7 g/dL (31.5-36.5); Mean Platelet Volume 12.6 fL (9.1-12.4); Platelet Count 158 K/mm3 (150-400); RDW Coefficient Variation 15.7 % (11.7-14.2); RDW Standard Deviation 53.7 fL (35.1-46.3); Red Blood Cell Count 4.52 M/mm3 (4.30-5.90); White Blood Cell Count 10.78 K/mm3 (4.00-11.30)
[2021-05-17 05:44] LABS: Mean Corpuscular Volume 94 fL (80-100)
[2021-05-17 05:46] LABS: International Normalized Ratio 2.4; Prothrombin Time Results 23.8 Sec (9.7-11.5)
[2021-05-17 05:58] LABS: Bun/Creatinine Ratio 23.3 (12.0-20.0); Calcium, Blood 8.6 mg/dL (8.5-10.1); Creatinine, Blood 2.1 mg/dL (0.60-1.20); Potassium, Blood 3.8 mmol/L (3.5-5.5)
--- NOTE | 2021-05-17 06:19 | NUR ---
SUMMARY PATIENT RESTING QUIETLY, AWAKENS EASILY TO SLIGHT STIMULI. CONFUSION CONTINUES. PATIENT VERY SPONTANEOUS AND IRRITABLE. CONTINUE TO HAVE DIFFICULTY OBTAINING ACCURATE BIOX READING. 4 UNITS FFP COMPLETE AND NS 150 CC/HR STARTED. LUNG SOUNDS COARSE T/O AND DECREASED BASES. HARSH COUGH OFF AND ON ONCE HAD BRIGHT RED BLOOD SPOTS ON LINEN AFTER COUGH. ORAL CARE COMPLETED TWICE AND PATIENT CONTINUES TO GET BLACK DRIED BLOOD REBUILD UP ON HIS LIPS AND TONGUE. PATIENT DENIES NAUSEA AND DOESN'T APPEAR TO BE HAVING EMESIS. DIFFICULT TO SEE INSIDE OF MOUTH TO SEE IF THERE ARE WOUNDS INSIDE. AFIB CONTINUES CARDIZEM STARTED AT 15 MG AND NOW IS TITRATED TO 5 MG/HR WITH RATE 116-130. HYPOTENSION CONTINUES.
--- NOTE | 2021-05-17 06:43 | NUR ---
DOCTOR RAN NOTIFIED OF AM LABS. SEE NEW ORDERS. PLAN TO DC CARDIZEM AFTER STARTING DIGOXIN.
--- NOTE | 2021-05-17 07:15 | NUR ---
ASSUMPTION OF CARE PT REMAINS ON OXYMIZER AT 9L/MIN. PT CURRENTLY RECEIVING CARDIZEM 5MCG/HR, OCTREOTIDE, PROTONIX AND NS. PT OPENS EYES SPONTANEOUSLY BUT MOSTLY KEEPS THEM CLOSED, OPENS WITH VERBAL STIMULI. PT ANSWERS QUESTIONS BUT IS INCONSISTENT AND CONFUSED AT TIMES. UNABLE TO OBTAIN BP, ATTEMPTED DOPPLER WITHOUT SUCCESS. PT REMAINS AWAKE DURING THIS TIME. LEVOPHED STARTED AT 5MCG/MIN. R UPPER ARM, AND BILAT LEGS ARE MOTTLED UP TO THIGHS. DR AVALOS AT BEDSIDE FOR EVAL. ORDERS RECEIVED INCLUDING ABG, RT NOTIFIED. DISCUSSED POSSIBLE NEED FOR CENTRAL LINE, HYPOTENSION, AND PT'S OVERALL CONDITION. DR CANADA AT BEDSIDE FOR EVAL. ORDER RECEIVED FOR CHEST CT. PLAN FOR CONTINUED SECURITIES AND REAL ESTATE DIRECTOR INTERVENTION, CONSULT FOR GI, AND ECHO. SEE SHIFT ASSESSMENT.
[2021-05-17 08:05] LABS: PO2 Arterial 79.2 mmHg (80-100)
[2021-05-17 08:51] LABS: Magnesium, Blood 2.6 mg/dL (1.6-2.4); Phosphorus, Blood 6.2 mg/dL (2.5-4.9); Triglycerides 113 mg/dL (30-160)
--- NOTE | 2021-05-17 11:39 | NUR ---
UPDATE CT chest cancelled. Patient given PO medications after oral care performed, tolerated well. Pt drank some ice water, no signs of aspiration. Pt requests something to eat, will discuss with provider. Pt has been off levophed for several hours. Unable to located pedal pulses with doppler but bilateral posttibial pulses identified.
[2021-05-17 12:30] LABS: Source, Urine Catheter
[2021-05-17 12:32] LABS: Appearance, Urine Clear (Clear); Bilirubin, Urine Neg (Neg); Blood, Urine 3+ (Neg); Color, Urine Yellow (P-Yellow); Glucose Qualitative, Urine 3+ (Neg); Ketones, Urine Neg (Neg); Leukocyte Esterase, Urine Neg (Neg); Nitrite, Urine Neg (Neg); Protein, Urine 3+ (Neg); Urobilinogen, Urine 1+ (Normal)
[2021-05-17 12:42] LABS: Bacteria Few /hpf; Squamous Epithelial Cells Few /hpf (Few)
--- NOTE | 2021-05-17 15:29 | NUR ---
Echocardiogram using 0.60ml 0f Definity contrast performed.
--- NOTE | 2021-05-17 15:36 | NUR ---
This RN was performing oral care as pt tolerated. At end of oral care, pt picked debris off tongue. When provided with recepticle, it was noted that debris was hard and resembled a portion of a tooth. Pt was not bothered by event and when asked if it was a tooth, he said "is it?". Pt's girlfriend states "He has bad teeth, you know". Pt provided with mouthwash. No blood noted.
[2021-05-17 16:30] LABS: Hematocrit 37.9 % (37.0-53.0); Hemoglobin 12.2 g/dL (13.5-17.5)
--- NOTE | 2021-05-17 18:05 | NUR ---
SHIFT SUMMARY PT REMAINS ON 9L OXYMIZER. PT RECEIVING OCTREOTIDE, PROTONIX AND NS. NEURO: PT WAKES TO VERBAL STIMULI. ANSWERS QUESTIONS BUT IS AN UNRELIABLE HISTORIAN. ABLE TO STATE NAME BUT CONSISTENTLY UNSURE OF WHERE HE IS, BELIEVES IT IS 2000 AND ENRIQUE WOLFF IS PRESIDENT. SPOUSE STS HE NORMALLY THINKS ROBERT IS PRESIDENT. RESP: PT HAS BEEN ON 9L VIA OXYMIZER THROUGHOUT SHIFT. LUNGS ARE COARSE THROUGHOUT AND DIMINISHED IN BASES. CARDIAC: PT HAS BEEN IN AFIB THROUGHOUT SHIFT, HR 110S-120S. FAINT RADIAL PULSES. R POST TIBIAL PULSE AUDIBLE WITH DOPPLER, L PEDAL PULSE AUDIBLE WITH DOPPLER. GI: PT REMAINS NPO. PT'S MOUTH CONTINUES TO HAVE DRIED BLOOD, PT DENIES N/V. ORAL CARE DONE MULTIPLE TIMES THIS SHIFT. PT USED BEDPAN APPROPRIATELY. 1 BM THIS SHIFT. : TEMP SARAH PLACED THIS SHIFT. URINE IS YELLOW, ADEQUATE OUTPUT. SKIN: R UPPER ARM AND BLE REMAIN MOTTLED. PLAN FOR EGD AND ABDOMINAL US THIS EVENING. WILL REPORT TO ONCOMING RN.
--- NOTE | 2021-05-17 18:30 | NUR ---
EGD DR TURNER, DR UGARTE, AND 2 DAY SURGERY RNS AT BEDSIDE TO PERFORM ENDOSCOPY. DURING PROCEDURE, SUPPLEMENTAL O2 INCREASED FROM 9L OXYMIZER TO 15L NON-REBREATHER. SBP DECREASED TO 80S, MAP MAINTAINED >65. OROPHARYNGEAL AIRWAY PLACED BY DR UGARTE. APPROX 15MIN POST-PROCEDURE, PT BEGAN WAKING UP. PT OPENS EYES, MAKES EYE CONTACT, ANSWERS QUESTIONS BY NODDING HEAD. OROPHARYNGEAL AIRWAY REMOVED, PT PLACED BACK ON 9L OXYMIZER. ORDERS RECEIVED FROM DR TURNER TO D/C OCTREOTIDE AND CHANGE PROTONIX TO BID. SEE DAY SURGERY NOTES.
--- NOTE | 2021-05-17 18:34 | NUR ---
05/17/21 1834 Emma Griffin History, Chart, Medications and Allergies reviewed before start of procedure.Patient confirms NPO status and agrees with scheduled surgery.MONITOR INTACT WITH CONTINUOUS PULSE OXIMETRY AND INTERMITTENT BP.O2 VIA N/C INTACT THROUGHOUT SEDATION/PROCEDURE. 3-LEAD EKG REVIEWED WITH PHYSICIAN PRIOR TO START OF PROCEDURE.See Anesthesia record
--- NOTE | 2021-05-17 20:21 | NUR ---
ASSUMED PT CARE AT 1915 FROM [place] PT SLEEPING IN BED UPON ASSUMPTION OF CARE; HOWEVER, UPON ENTERING ROOM PT AWAKENS TO VERBAL STIMULI. ALERT AND ORIENTED TO SELF AND SURROUNDINGS; CONFUSED TO PLACE AND YEAR. PT NOTED TO BE AFIB WITH RVR; RATE 120-130'S; BP'S STABLE AT THIS TIME. PROTONIX AND SANDOSTATIN GTTS DISCONTINUED; HOWEVER, NS REMAINS INFUSING AT 60MLS/HR VIA 18G TO RIGHT FOREARM. PT NOTED TO HAVE CRACKLES/RHONCHI T/O ALL LOBES; DRY COUGH. DENIES N/V. NO EVIDENCE OF ACTIVE BLEED AT THIS TIME. THERE IS A TOOTH THAT IS IN A SAMPLE CUP IN ROOM IN WHICH WAS A POSSIBLE CAUSE OF BLEEDING FROM MOUTH TODAY. PT IS ON 10L VIA OXYMIZER WITH OXYGEN SATURATIONS BEING OBTAINED VIA FOREHEAD WITH O2 SATS >95%. PT BECOMES SOB WITH ANY EXERTION AND WHEN LYING FLAT. RLE +2 PITTING EDEMA WITH LLE +1. PULSES OBTAINED VIA DOPPLER TO BLE'S. RADIAL PULSES PALPABLE. CALL LIGHT WITHIN REACH; HOWEVER, PT UNABLE TO DEMONSTRATE USE. WILL CONTINUE TO MONITOR; BED ALARM IN PLACE. PT SITTING UP IN BED EATING YOGURT AND PUDDING.
[2021-05-18 03:56] LABS: BASOPHILS ABSOLUTE AUTO 0.01 K/mm3 (0.00-0.23); BASOPHILS PERCENT AUTO 0 % (0-2); EOSINOPHILS PERCENT AUTO 0 % (0-6); Hematocrit 40.2 % (37.0-53.0); Hemoglobin 13.2 g/dL (13.5-17.5); IMMATURE GRAN ABSOLUTE AUTO 0.06 K/mm3 (0.00-0.10); IMMATURE GRAN PERCENT AUTO 1 % (0-1); LYMPHOCYTES ABSOLUTE AUTO 1.52 K/mm3 (0.84-5.20); LYMPHOCYTES PERCENT AUTO 12 % (21-46); MONOCYTES ABSOLUTE AUTO 0.62 K/mm3 (0.16-1.47); MONOCYTES PERCENT AUTO 5 % (4-13); Mean Corpuscular HGB 29.3 pg (26.0-34.0); Mean Corpuscular HGB Conc 32.8 g/dL (31.5-36.5); Mean Platelet Volume 12.6 fL (9.1-12.4); NEUTROPHILS ABSOLUTE AUTO 10.75 K/mm3 (1.96-9.15); NEUTROPHILS PERCENT AUTO 83 % (41-73); Platelet Count 142 K/mm3 (150-400); RDW Coefficient Variation 15.8 % (11.7-14.2); RDW Standard Deviation 51.1 fL (35.1-46.3); White Blood Cell Count 12.96 K/mm3 (4.00-11.30)
[2021-05-18 04:05] LABS: Mean Corpuscular Volume 89 fL (80-100)
[2021-05-18 04:12] LABS: International Normalized Ratio 2.69; Prothrombin Time Results 26.5 Sec (9.7-11.5)
[2021-05-18 04:21] LABS: Albumin, Blood 2.8 g/dL (3.4-5.0); Albumin/Globulin Ratio 0.7 (0.8-1.8); Bilirubin, Total 6.5 mg/dL (0.1-1.0); Bun/Creatinine Ratio 30.7 (12.0-20.0); Calcium, Blood 8.5 mg/dL (8.5-10.1); Creatinine, Blood 2.02 mg/dL (0.60-1.20); Globulin, Blood 4.1 g/dL (2.2-4.0); Magnesium, Blood 2.3 mg/dL (1.6-2.4); Phosphorus, Blood 5.5 mg/dL (2.5-4.9); Potassium, Blood 3.8 mmol/L (3.5-5.5); Total Protein, Blood 6.9 g/dL (6.4-8.2)
--- NOTE | 2021-05-18 05:21 | NUR ---
END OF SHIFT SUMMARY PT SLEPT MOST OF SHIFT; ABLE TO REPOSITION SELF. REMAINED AFIB WITH RVR; RATE 120-150'S. BP'S STABLE; SEE FLOWSHEET. PT KEPT REQUESTING PO FLUIDS; TOTAL OF 950CC INTAKE AND PT REQUESTING MORE. PT TRANSPORTED TO CT FOR CHEST SCAN THIS AM. NS PLACED ON STANDBY DURING THIS TIME, WHICH WAS INFUSING AT 60ML/HR. LUNG SOUNDS REMAIN COURSE/CRACKLES T/O ALL LOBES. SMITH CATHETER REMAINS PATENT AND DRAINING CLEAR DARK, SUSAN COLORED URINE. PT MORE ALERT AND ORIENTED AND MAKING NEEDS KNOWN. WILL CONTINUE TO MONITOR UNTIL REPORT IS HANDED OFF TO ONCOMING RN.
--- NOTE | 2021-05-18 07:15 | NUR ---
ASSUMPTION OF CARE PT AWAKE WHEN ENTERING ROOM. PT APPEARS MORE ALERT AND COHERENT THAN PREVIOUS DAY. PT IS ABLE TO STATE NAME, , THAT HE IS IN THE HOSPITAL AND WHY. HE IS UNABLE TO GIVE THE MONTH AND YEAR. PT REMOVED OXYMIZER AND ON ROOM AIR PT'S SATS 88-90%. PT PLACED ON 2L VIA NC WITH SATS >95%. PT REPOSITIONS SELF INDEPENDENTLY. DENIES PAIN OR DISCOMFORT. FLUID RESTRICTION OF 1500ML. SMITH REMAINS IN PLACE DRAINING URINE.
[2021-05-18 09:11] LABS: HBSAG SCREEN Negative (Negative); HEP A AB, IGM Negative (Negative); HEP B CORE AB, IGM Negative (Negative); HEP C VIRUS AB >11.0 (0.0-0.9)
--- NOTE | 2021-05-18 18:22 | NUR ---
SHIFT SUMMARY NEURO: PT REMAINS ALERT AND POOR HISTORIAN. PT IS ABLE TO GIVE NAME, , REASON HE IS IN THE HOSPITAL BUT CONSISTENTLY GIVES THE WRONG YEAR, PRESIDENT, AND OCCASIONALLY DOES NOT REMEMBER HE IS AT THE HOSPITAL. PT REPOSITIONS SELF INDEPENDENTLY AND MOVES ALL EXTREMITIES. RESP: PT ON 2L NC. PT BECOMES DYSPNEIC ON EXCERTION. CARDIAC: REMAINS IN AFIB WITH OCCASIONAL PVCS. HR HAS BEEN BETWEEN 100S-140S. STRONG RADIAL PULSES. R PEDAL AND L POST-TIBIAL PULSES AUDIBLE WITH DOPPLER. R LEG REMAINS MORE EDEMATOUS THAN L. GI: ABDOMEN IS SOFT. PT USED BEDPAN AND HAD 1 SMALL SMEAR. PT TOLERATING MECH SOFT FOOD. FLUID RESTRICTION OF 1500ML. : SMITH REMAINS IN PLACE DRAINING SUSAN URINE. SKIN: SMALL AMOUNT OF MOTTLING ON BLE, IMPROVED FROM YESTERDAY. WILL REPORT TO ONCOMING RN.
--- NOTE | 2021-05-18 19:45 | NUR ---
assumed care after report recieved assessment complete. very confused, oriented to only self. very flat affect. keeps pulling off O2 sensor and O2. Sats 97-99%. lungs clear. pedal pulse unpalpable, able to doppler all.
[2021-05-19 03:45] LABS: Hematocrit 39.5 % (37.0-53.0); Hemoglobin 13.1 g/dL (13.5-17.5); Mean Corpuscular HGB 29.7 pg (26.0-34.0); Mean Corpuscular HGB Conc 33.2 g/dL (31.5-36.5); Mean Corpuscular Volume 90 fL (80-100); Mean Platelet Volume 12.7 fL (9.1-12.4); Platelet Count 156 K/mm3 (150-400); RDW Coefficient Variation 15.8 % (11.7-14.2); RDW Standard Deviation 51.6 fL (35.1-46.3); Red Blood Cell Count 4.41 M/mm3 (4.30-5.90); White Blood Cell Count 14.82 K/mm3 (4.00-11.30)
[2021-05-19 04:24] LABS: Albumin, Blood 2.7 g/dL (3.4-5.0); Anion Gap 14 mmol/L (6-16); Blood Urea Nitrogen 81 mg/dL (8-24); Bun/Creatinine Ratio 35.8 (12.0-20.0); CO2, Blood 23 mmol/L (21-32); Calcium, Blood 8.7 mg/dL (8.5-10.1); Chloride, Blood 94 mmol/L (98-108); Creatinine, Blood 2.26 mg/dL (0.60-1.20); Glomerular Filtration Rate 30 (60-); Glucose, Blood 373 mg/dL (70-99); Magnesium, Blood 2.5 mg/dL (1.6-2.4); Phosphorus, Blood 4.8 mg/dL (2.5-4.9); Potassium, Blood 4.2 mmol/L (3.5-5.5); Sodium, Blood 131 mmol/L (136-145)
--- NOTE | 2021-05-19 05:44 | NUR ---
Awake all through night, very confused and restless. pulling of oxygen and O2 sat sensor multiple times. O2 sats remain in upper 90's even with oxgen off. increased shortness of breath when oxygen off. urine out put dark al with 600 ml out of boles for shift total. One incont stool dark. became very agitated trying to climb out of bed and pull every thing off. Dr Estrada notified
--- NOTE | 2021-05-19 07:15 | NUR ---
ASSUMPTION OF CARE PT IS AWAKE, RESTLESS AND MOANING. PT REMOVING NC AND LEADS. ATTEMPTED TO REDIRECT PT WITHOUT SUCCESS. PT IS UNABLE TO STATE HIS NAME OR ANY OTHER INFORMATION. PT WILL NOT FOLLOW COMMANDS BUT MOVES ALL EXTREMITIES INDEPENDENTLY. PT MAINLY MOANS AND MAKES INSENSIBLE SOUNDS. OCCASIONALLY SAYS "YES/NO" TO QUESTIONS BUT ANSWERS ARE INCONSISTENT. PT SOB WITH EXCERTION, O2 INCREASED TO 5L VIA NC. SMITH REMAINS IN PLACE DRAINING YELLOW URINE. SEE SHIFT ASSESSMENT.
[2021-05-19 08:46] LABS: International Normalized Ratio 2.66; Prothrombin Time Results 26.2 Sec (9.7-11.5)
[2021-05-19 17:55] LABS: Base Excess Venous 2.5 mmol/L; Bicarbonate Venous 26.5 mmol/L (24.0-30.0); PCO2 Venous 36.9 mmHg (38-42); pH Blood Venous 7.46 (7.34-7.37)
--- NOTE | 2021-05-19 18:06 | NUR ---
SHIFT SUMMARY NEURO: PT REMAINS CONFUSED. PT OPENS EYES SPONTANEOUSLY, INCONSISTENTLY FOLLOWS COMMANDS AND ANSWERS QUESTIONS. PT DENIES PAIN BUT IS RESTLESS IN BED. GIRLFRIEND AT BEDSIDE FOR COMFORT. RESP: LUNGS ARE COARSE WITH CRACKLES. PT PLACED BACK ON 2L VIA NC FOR DESATURATIONS DURING REST. CARDIAC: PT REMAINS IN AFIB WITH RATE 100S-120S. FAINT RADIAL PULSES. DOPPLER PEDAL PULSES. BLE REMAIN EDEMATOUS AND REDDENED. GI: ABDOMEN IS SOFT TO PALPATION. HYPOACTIVE. 1 INCONTINENT BM THIS SHIFT. PT HAS BEEN KEPT NPO THIS SHIFT DUE TO COGNITION AND RISK FOR ASPIRATION. : SMITH REMAINS IN PLACE DRAINING YELLOW URINE, ADEQUATE OUTPUT. SKIN: UNCHANGED FROM PREVIOUS ASSESSMENTS. DR CANADA AND HOSPITALIST TEAM HAD DISCUSSION THIS EVENING WITH PT'S PARTNER HANS. PT'S CODE STATUS CHANGED TO DNR AND OTHER ORDERS RECEIVED. WILL REPORT TO ONCOMING RN.
[2021-05-20 03:52] LABS: Anti-Xa UFH, PHA Monitoring <0.10 IU/mL; International Normalized Ratio 2.37; Prothrombin Time Results 23.5 Sec (9.7-11.5)
[2021-05-20 04:03] LABS: BASOPHILS ABSOLUTE AUTO 0.02 K/mm3 (0.00-0.23); BASOPHILS PERCENT AUTO 0 % (0-2); EOSINOPHILS PERCENT AUTO 0 % (0-6); Hemoglobin 14.3 g/dL (13.5-17.5); IMMATURE GRAN PERCENT AUTO 1 % (0-1); LYMPHOCYTES ABSOLUTE AUTO 1.43 K/mm3 (0.84-5.20); LYMPHOCYTES PERCENT AUTO 9 % (21-46); MONOCYTES ABSOLUTE AUTO 1.12 K/mm3 (0.16-1.47); MONOCYTES PERCENT AUTO 7 % (4-13); Mean Corpuscular HGB 29.4 pg (26.0-34.0); Mean Corpuscular Volume 86 fL (80-100); NEUTROPHILS ABSOLUTE AUTO 13.96 K/mm3 (1.96-9.15); NEUTROPHILS PERCENT AUTO 84 % (41-73); NRBC ABSOLUTE 0.03 K/mm3 (0.00-0.02); NRBC Auto 0.2 /100 WBC (0.0-0.2); RDW Coefficient Variation 15.2 % (11.7-14.2); RDW Standard Deviation 47.7 fL (35.1-46.3); Red Blood Cell Count 4.87 M/mm3 (4.30-5.90); White Blood Cell Count 16.73 K/mm3 (4.00-11.30)
[2021-05-20 04:19] LABS: Albumin, Blood 2.6 g/dL (3.4-5.0); Albumin/Globulin Ratio 0.6 (0.8-1.8); Bun/Creatinine Ratio 42.1 (12.0-20.0); Calcium, Blood 8.9 mg/dL (8.5-10.1); Creatinine, Blood 1.95 mg/dL (0.60-1.20); Globulin, Blood 4.4 g/dL (2.2-4.0); Potassium, Blood 4.3 mmol/L (3.5-5.5)
[2021-05-20 04:31] LABS: Mean Platelet Volume 13.1 fL (9.1-12.4); Platelet Count 118 K/mm3 (150-400)
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
--- NOTE | 2021-05-20 17:50 | NUR ---
SHIFT SUMMARY... NO ACUTE NEGATIVE CHANGES NOTED THIS SHIFT, THE PT STARTED TO BECOME AGITATED AND YELLING ABOUT GOING HOME AROUND 1400, THE PT'S S.O. HANS CAME DURING VISITNG HOURS AND ATTEMPTED TO CALM THE PT DOWN BUT WAS NOT SUCCESSFUL. PROVIDER WAS NOTIFIED AND AN ORDER FOR HALDOL 2-5 MG Q3HRS PRN WAS OBTAINED. THE PT WAS ALSO GIVEN 12.5MCG OF IV FENTANYL TO HELP WITH GENERALIZED PAIN. THE PT WAS ABLE TO CALM DOWN AND SLEEP AFTER THIS WAS GIVEN. THIS RN NOTED THAT THE PT WAS HAVING LONG APNIC PERIODS OF 15-45 SECONDS COUNTED BY THIS RN. THE PT'S S.O. HANS TOLD THIS RN THAT "HE STOPS BREATHING ALL THE TIME AT HOME IN HIS SLEEP, I AM ALWAYS AFRAID THAT ONE DAY ILL WAKE UP AND HE WILL HAVE IN HIS SLEEP FROM SLEEP APNIA AND NOT USING HIS CPAP." PALLIATIVE CARE RN SPOKE WITH THE PT'S S.O. HANS AND PLANS TO SPEAK WITH HER AGAIN TOMORROW ABOUT POSSIBLE COMFORT CARE/HOME WITH HOSPICE. CALL LIGHT IN REACH WILL CONTINUE TO MONITOR UNTIL REPORT IS GIVEN TO ONCOMING RN.
--- NOTE | 2021-05-20 18:14 | NUR ---
MET WITH PT'S S/O HANS THIS EVENING. SHE WAS TEARFUL WHILE DISCUSSING PT'S DECLINING HEALTH. SHE STATES SHE HAS LITTLE HOPE HE WILL "COME BACK" FROM THIS, HE HAS NOT IMPROVED SINCE ADMISSION. SHE STATES HER GOAL WOULD BE TO TAKE HIM HOME WITH HOSPICE, HE WOULD LIKELY BE MORE COMFORTABLE THERE. UNSURE AT THIS POINT IF PT IS AWARE OF HIS SURROUNDINGS. PLAN TO CALL HANS TOMORROW TO UPDATE HER AROUND NOON, FURTHER DISCUSS POSSIBLE PLAN FOR DISCHARGE.
[2021-05-21 04:00] LABS: International Normalized Ratio 3.05; Prothrombin Time Results 29.8 Sec (9.7-11.5)
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
--- NOTE | 2021-05-21 08:28 | NUR ---
AM NOTE... ASSUMED CARE OF PT AT 0700, PT IS SITTING UP IN THE BED WITH A POWER ON IN A TRIPOD POSITION, PT SEEMS TO BE DEONTE-HURST BREATHING WITH A RR IN THE HIGH 40'S THEN APNIC PERIODS THAT LAST UP TO 30 SECONDS THE PT IS IN AFIB W/RVR IN THE 120'S-160'S INCREASED ECTOPY FROM YESTERDAY IS ALSO NOTED. THE PT HAS HAD 3 EPISODES OF SELF LIMITING VTACH NOTED ON TELE. THE PT'S BP IS CURRENTLY STABLE WITH MAPS >65. THE PT HAS A PANICKED/SCARED LOOK IN HIS EYES. THE PT DOES C/O OF CHEST PAIN, GRABBING/CLUTCHING HIS CHEST SAYING "SOMTHING IS WRONG IT HURTS." THE PT IS UNABLE ELABORATE ANY FURTHER ON THAT STATEMENT. THE PT IS MORE JAUNDICE THAN YESTERDAY, HIS BLE ARE COLD WITH MOTTLING NOTED. PULSES ARE ONLY FOUND BY DOPPLER AND ARE MORE WEAK THAN YESTERDAY. THE PT IS ON 6L NC WITH UNSURE O2 SATS D/T POOR PERFUSION AND POOR PULSE OX WAVE FORMS. NAIL BEDS ARE DUSKY WITH CAP REFILL >3 SECONDS. THE PT IS UNABLE TO TOLERATE BEING LAID BACK EVEN SLIGHTLY. PROVIDER AT THE BEDSIDE TO ASSESS THE PT, NEW ORDERS OBTAINED FOR A VBG AND STAT CHEST XRAY WITH PLANS TO CALL HANS HIS S.O. AND DECISION MAKER. WILL CONTINUE TO MONITOR.
[2021-05-21 09:23] LABS: Base Excess Venous -13.8 mmol/L; Bicarbonate Venous 15.4 mmol/L (24.0-30.0); PO2 Venous 187 mmHg (38-42)
--- NOTE | 2021-05-21 11:30 | NUR ---
PT UPDATE.... THE PT WAS MADE COMFORT CARE PER PROVIDER AFTER SPEAKING WITH THE PT'S Victor M MAXWELL WHO IS THE DECISION MAKER. PALLIATIVE CARE RN WAS NOTIFIED. THE PT'S Victor M MAXWELL SEEMS TO BE HAVING A HARD TIME WITH THIS SITUATION, EMOTIONAL SUPPORT GIVEN BY THIS RN AND THE PALLIATIVE CARE RN. WILL CONTINUE TO MONITOR AND PROVIDE CARE.
--- NOTE | 2021-05-21 14:08 | NUR ---
PT'S S/O MELODIE IS AT BEDSIDE ALONG WITH HER SISTER. PT IS EXHIBITING S/S OF TERMINAL AGITATION. BEDSIDE RN KAMALJIT JUST GAVE MORPHINE AND HALDOL, PT BEGAN YELLING OUT, "NO,NO!", PULLING OFF HIS OXYGEN TUBING AND MAKING FREQUENT POSITION CHANGES. HIS S/O MELODIE HAS BEEN ASKING PT'S NURSE NOT TO MEDICATE HIM, BUT SHE NOW REALIZES THE PT IS UNCOMFORTABLE, HE HAS CONTINUED TO MOAN, YELL OUT AND MOVE ABOUT. AFTER MEDICATION, PT IS LYING QUIETLY, WITH MELODIE LAYING NEXT TO HIM IN THE BED. SHE V/U ON CALLING FOR THE NURSE.
--- NOTE | 2021-05-21 16:33 | NUR ---
PT UPDATE... PT TO TRANSFER TO THE MEDICAL FLOOR, REPORT CALLED TO MEDICAL FLOOR RN. ALL OF PT'S BELONGINGS PACKED AND SENT WITH THE PT. THE PT'S Victor M MAXWELL IS IN THE ROOM AND NOTIFIED OF THE TRANSFER. PROVIDER AT THE BEDSIDE TO SEE THE PT AND FAMILY IN THE ROOM.
--- NOTE | 2021-05-21 18:20 | NUR ---
PATIENT ARRIVED TO MED FLOOR AFTER 5PM. HE WAS PULLING AT BEDDING AND TRYING TO GET OUT OF BED. HE APPEARED ANXIOUS. BREATHING HARD AND EPISODES OF APNEA LASTING LONG 35 SECONDS. GIRLFRIEND HANS AT BEDSIDE AND ASKING THAT PAITENT KEEP O2 ON VIA NASAL CANNULA FOR COMFORT. DECISION TO HAVE PATIENT AT 3 LITERS FOR HIS COMFORT. WILL REMAIN AVAILABLE FOR THIS PATIENT FOR ANY WANTS OR NEEDS UNTIL SHIFT CHANGE AND HAND OFF TO RADAR REPAIRER RN. THOM MORGAN RN
--- NOTE | 2021-05-21 18:45 | NUR ---
SISTER SUSI CALLS FROM [place] [phone]. SHE HAS MEDICAL POWER OF FULL TIME STAFF INTERPRETER AND WILL FAX IF NECESSARY. SHE WANTS THE NEXT ON THE LIST FOR MORTUARY'S. SHE WOULD PREFER TO BE CALLED IN THE AM IF HE PASSES IN THE MIDDLE OF THE NIGHT. THOM MORGAN RN
[2021-05-21] MEDS ORDERED: DOXY100 PO (23:06)
[2021-05-21] MEDS ORDERED: ALBU90OI INH (23:09)
[2021-05-21] MEDS ORDERED: WARF5 PO (23:09)
[2021-05-21] MEDS ORDERED: Aspir 8181 MG PO (23:11)
--- NOTE | 2021-05-22 05:24 | NUR ---
SHIFT SUMMARY PT UNRESPONSIVE WITH PAUSED BREATHING OF >20 SECONDS. COMFORT CARE MEASURES IN PLACE. FAMILY AT BEDSIDE T/O NIGHT. BED IN LOWEST POSITION WITH CALL LIGHT IN REACH. WILL CONTINUE TO MONITOR AND REPORT TO ONCOMING RN.
--- NOTE | 2021-05-22 10:31 | NUR ---
Family refuse for me to reposition PT.
--- NOTE | 2021-05-22 15:42 | NUR ---
PT'S S/O REMAINS CLOSE BY, SHE LEFT THE ROOM EARLIER WITH HER SISTER TO GO TO [place]. PT HAS BEEN UNRESPONSIVE TODAY; APPEARS TO BE COMFORTABLE, BEDSIDE RN IS MEDICATING NEEDED WOTH ROXANOL. NO CHANGES NEEDED TO CARE PLAN. S/O APPEARS TO BE GRIEVING APPROPRIATELY TODAY, AND DOES UNDERSTAND THE NEED FOR MEDICATION.
--- NOTE | 2021-05-23 05:15 | NUR ---
SYSTEMS ARCHITECTURE ANALYST SUMMARY NO ACUTE CHANGES THIS SHIFT. PT CONTINUES ON COMFORT CARE. FAMILY MEMBERS AT BEDSIDE THROUGH THE NIGHT. PT HAS SLEPT THROUGH THE SHIFT AND HAS BEEN COMFORTABLE. MEDICATED FOR PAIN X1 THIS AM. WILL CONTINUE TO MONITOR.
--- NOTE | 2021-05-23 19:48 | NUR ---
COMFORT: PATIENT IS RESTING WITH EYES CLOSED, MOANING WITH MOUTH CARE AND RESTLESS. FAMILY IS REQUESTING SUCTIONINJG AND PAIN MEDICATION. MOROPHINE 5 MG GIVEN. SUCTIONING WAS DONE WITH LITTLE WAS REACHABLE.
--- NOTE | 2021-05-23 22:54 | NUR ---
COMFORT: PATIENT IS RESTING COMFORTABLY. SISTER AND SIGNIFICANT OTHER ARE AT BEDSIDE.
--- NOTE | 2021-05-24 02:41 | NUR ---
COMFORT: PATIENT IS RESTING COMFORTABLY, FAMILY IS SLEEPING AT BEDSIDE. fAMILY REQUESTED PATIENT NOT BE TURNED IS RESTING COMFORTABLY, NO T&P AT THIS TIME.
--- NOTE | 2021-05-24 05:03 | NUR ---
COMFORT: PATIENT SCORES A 4 ON FLACC SCALE, IV MORPHINE WAS GIVEN. SECRETIONS ARE IN LOWER AIRWAY, MOIST RESPIRATIONS OBSERVED. ORAL SUCTIONING AND MOUTH CARE AND T&P ARE PROVIDED. EMOTIONAL SUPPORT IS GIVEN TO FAMILY. Gil PUT OUT 500ML OF AN SUSAN URINE.
--- NOTE | 2021-05-24 09:54 | NUR ---
Received referral from hospitalist (Dr. Worthy) on 05/24/2021. Patient is to discharge with orders for hospice and family elected [facility]. Gathered supporting documentation for referral (face sheet, labs, imaging, progress notes, palliative care note, and H&P) and sent to [facility] amf mechanic (Griffin Paulino) for review of hospice appropriateness and ability to accept patient onto service post discharge. Will await further information from hospice amf mechanic regarding the above. Rachel Farley Referral Liaison
--- NOTE | 2021-05-24 11:37 | NUR ---
Comfort Care Visit Pt resting in bed, non responsive, and appears jaudiced. Mottling on bilateral knees noted. Pt appears comfortable with no S/S of distress at this time. Pt's SO at bedside. Offered emotional support and therapeutic listening. Listened as SO Carrie discusses condieration of taking Pt home with hospice services. Answered questions and educated on actively dying process. Educated on hospice philosophy. Continued therapeutic listening. Carrie reports plan to keep Pt in the hospital. Carrie expresses appreciation and reports no other concerns at this time. Spoke with Primary RN Kassi and discussed case. Palliative Care will remain available.
--- NOTE | 2021-05-24 13:08 | NUR ---
PT FOUND TO BE , SIGNIFICANT OTHER PRESENT IN THE ROOM
--- NOTE | 2021-05-24 13:15 | NUR ---
Late Entry from 05/24/2021 at 1130: Received notification from [facility] press operator meat (Griffin Paulino) that patient is hospice appropriate and able to be accepted onto service post discharge. Will attempt to meet with patient and family today to further discuss the above. Will continue to monitor and follow for discharge. Rachel Farley Referral Liaison
--- NOTE | 2021-05-24 13:15 | NUR ---
SISTER SUSI NOTIFIED
--- NOTE | 2021-05-24 13:15 | NUR ---
Received notification from nurse long term care social worker (Alex Rodriguez) that patient has . Notified [facility] gang tailer (Griffin Paulino) of the above. No further interventions required. Rachel Farley Referral Liaison
--- NOTE | 2021-05-24 15:31 | NUR ---
PT TAKEN OUT BY HOME, BELONGINGS WENT WITH SIGNIFICANT OTHER
== END 2021-05-24 13:02 | DRG 368 ==
LOC: ER 21:21 → ICUE 05-17 00:35 → ICUW 05-17 00:35 → ICUE 05-17 01:50 → MEDS 05-21 16:48
PROVIDERS: Family Medicine; Hospitalist; Internal Medicine Critical Care Medicine; Pharmacist; Student in an Organized Health Care Education/Training Program; ADMIT Internal Medicine
PROC: 30233L1 Transfusion of Nonautologous Fresh Plasma into Peripheral Vein, Percutaneous Approach (ICD-10-PCS; principal; 2021-05-16)
PROC: 30233K1 Transfusion of Nonautologous Frozen Plasma into Peripheral Vein, Percutaneous Approach (ICD-10-PCS; 2021-05-16)
PROC: 3E033XZ Introduction of Vasopressor into Peripheral Vein, Percutaneous Approach (ICD-10-PCS; 2021-05-17)
PROC: 0DJ08ZZ Inspection of Upper Intestinal Tract, Via Natural or Artificial Opening Endoscopic (ICD-10-PCS; 2021-05-17)
PROC: XW033E5 Introduction of Remdesivir Anti-infective into Peripheral Vein, Percutaneous Approach, New Technology Group 5 (ICD-10-PCS; 2021-05-18)
DX: K20.91 Esophagitis, unspecified with bleeding (principal); A41.89 Other specified sepsis; U07.1 COVID-19; J12.82 Pneumonia due to coronavirus disease 2019; J96.01 Acute respiratory failure with hypoxia; G92.8 Other toxic encephalopathy; I50.22 Chronic systolic (congestive) heart failure; I13.0 Hypertensive heart and chronic kidney disease with heart failure and stage 1 through stage 4 chronic kidney disease, or unspecified chronic kidney disease; E87.2 Acidosis; E87.1 Hypo-osmolality and hyponatremia; I42.8 Other cardiomyopathies; N17.9 Acute kidney failure, unspecified; I48.19 Other persistent atrial fibrillation; K76.6 Portal hypertension; I82.401 Acute embolism and thrombosis of unspecified deep veins of right lower extremity; G47.33 Obstructive sleep apnea (adult) (pediatric); E78.00 Pure hypercholesterolemia, unspecified; Z66 Do not resuscitate; Z20.822 Contact with and (suspected) exposure to COVID-19; Z51.5 Encounter for palliative care; N18.30 Chronic kidney disease, stage 3 unspecified; F17.210 Nicotine dependence, cigarettes, uncomplicated; R57.8 Other shock; I49.3 Ventricular premature depolarization; E10.22 Type 1 diabetes mellitus with diabetic chronic kidney disease; F15.10 Other stimulant abuse, uncomplicated; R57.1 Hypovolemic shock; F10.20 Alcohol dependence, uncomplicated; K22.70 Barrett's esophagus without dysplasia; T42.4X5A Adverse effect of benzodiazepines, initial encounter; I51.3 Intracardiac thrombosis, not elsewhere classified; K31.89 Other diseases of stomach and duodenum; K70.30 Alcoholic cirrhosis of liver without ascites; I25.10 Atherosclerotic heart disease of native coronary artery without angina pectoris; F32.A Depression, unspecified; Z86.73 Personal history of transient ischemic attack (TIA), and cerebral infarction without residual deficits; Z86.19 Personal history of other infectious and parasitic diseases; I25.2 Old myocardial infarction; Z79.899 Other long term (current) drug therapy; Z79.01 Long term (current) use of anticoagulants; Z78.1 Physical restraint status
CPT/HCPCS: 0241U; 36415; 36430; 36600; 51702; 71045; 71250; 76705; 80048; 80053; 80069; 80074; 80162; 81001; 82105; 82140; 82803; 82947; 83605; 83735; 84100; 84478; 85014; 85018; 85025; 85027; 85520; 85610; 85730; 86900; 86901; 87040; 93005; 93010; 93970; 94640; 94760; 94762; 96365; 96366; 96367; 96368; 96375; 99285-25; A9270; C8929; C9113; C9399; G0480; J0171; J0696; J1160; J1430; J1630; J1815; J2001; J2060; J2270; J2354; J2370; J2704; J3010; J3411; J3430; J3475; J7030; J7050; J7060; J7120; P9046; P9059; Q9957